=== PATIENT | female | born 1960 | race American Indian/Alaskan Native ===

== ENCOUNTER 2017-06-18 19:37 | Emergency (ER) | payer OTHER ==
[~2017-06-18] VITALS: Ht 154.9 cm; Wt 68.2 kg
[~2017-06-18 19:37] MED LIST: AMOXICILLIN500 MG PO; BENADRYL A12.5 MG/5 PO; CLINDAMYCIN HC300 MG PO; CYCLOBENZAPRINE10 MG PO; DIFLUCAN150 MG PO; HUMALOG KW200 UNIT/1 SQ; HYDROCODON-ACE1 EAC8 PO; JANUMET 50-1,01 EACH PO; JANUVIA100 MG PO; KEFLEX500 MG PO; LANTUS100 UNIT/1 SUB-Q; LANTUS100 UNITS/ SUB-Q; LISINOPRIL10 MG PO; LISINOPRIL40 MG PO; METFORMIN HCL500 MG PO; METHOCARBAMOL500 MG PO; NEURONTIN300 MG PO; NORCO 5-325 TA1 EACH PO; OXYCODONE HCL5 MG PO; PERCOCET 5-3251 EACH PO; REGLAN10 MG PO; TRAMADOL HCL50 MG PO; ZANAFLEX4 MG PO
[2017-08-10] MEDS ORDERED: ZOFRAN ODT4 MG PO (02:21)
== END 2017-06-18 22:19 | disposition home or self-care (01) ==
LOC: ED 19:37
DX: K74.60 Unspecified cirrhosis of liver (principal); E11.9 Type 2 diabetes mellitus without complications; F17.200 Nicotine dependence, unspecified, uncomplicated; Z88.6 Allergy status to analgesic agent; Z86.19 Personal history of other infectious and parasitic diseases; Z79.899 Other long term (current) drug therapy; Z79.4 Long term (current) use of insulin
CPT/HCPCS: 80053; 81001; 82010; 82800; 83690; 85025; 85610; 85730; 96374; 99283; J7030

== ENCOUNTER → 2017-08-10 | Emergency (ER) | payer OTHER ==
[~2017-08-10] VITALS: Ht 154.9 cm; Wt 68.2 kg
[~2017-08-10] MED LIST changes: +ZOFRAN ODT4 MG PO
== END ==
LOC: ED 00:12
DX: R10.9 Unspecified abdominal pain (principal); G89.29 Other chronic pain; K74.60 Unspecified cirrhosis of liver; E11.65 Type 2 diabetes mellitus with hyperglycemia; F17.210 Nicotine dependence, cigarettes, uncomplicated; Z88.6 Allergy status to analgesic agent; Z79.4 Long term (current) use of insulin; Z79.899 Other long term (current) drug therapy
CPT/HCPCS: 80053; 81001; 82010; 82800; 83690; 85025; 96374; 96375; 99284; G0480; J2405; J7030

== ENCOUNTER 2018-05-09 12:31 | Inpatient (IN) | payer OTHER ==
[~2018-05-09] VITALS: Ht 154.9 cm; Wt 61.7 kg
--- OUTSIDE RECORDS SUMMARY | 2018-05-09 12:34 | XMS ---
PreManage Notification: BRAEDEN CIFUENTES [employer] No recent Security Events currently on file CRITERIA MET - [facility] CARE PROVIDERS There are no care providers on record at this time. Ama has no Care Guidelines for this patient. Mariya VISIT COUNT (12 MO.) [address] [place] [id number] NILSA Lowry TOTAL 6 NOTE: Visits indicate total known visits. ED/C VISIT TRACKING (12 MO.) 05/09/2018 12:32 [facility] [place] TYPE: Emergency COMPLAINT: - ALT LOC 11/01/2017 14:29 [facility] [place] TYPE: Emergency COMPLAINT: - LEFT SIDE UQP 08/10/2017 00:13 [facility] [place] TYPE: Emergency COMPLAINT: - FLANK PAIN DIAGNOSES: - Type 2 diabetes mellitus with hyperglycemia - Other chronic pain - Allergy status to analgesic agent status - Other fci (current) drug therapy - Unspecified abdominal pain - Nicotine dependence, cigarettes, uncomplicated - Unspecified cirrhosis of liver - prison (current) use of insulin 06/18/2017 19:37 [facility] [place] TYPE: Emergency COMPLAINT: - ABD PAIN DIAGNOSES: - Type 2 diabetes mellitus without complications - Personal history of other infectious and parasitic diseases - prison (current) use of insulin - Upper abdominal pain, unspecified - Nicotine dependence, unspecified, uncomplicated - Unspecified cirrhosis of liver - Other fci (current) drug therapy - Allergy status to analgesic agent status 06/05/2017 21:33 [facility] TYPE: Emergency DIAGNOSES: - Hematemesis - Hematemesis - Type 1 diabetes mellitus with ketoacidosis without coma - Adverse effect of other nonsteroidal anti-inflammatory drugs [NSAID], initial encounter - Unspecified cirrhosis of liver - Acute posthemorrhagic anemia - Generalized abdominal pain - Other gastritis without bleeding 06/05/2017 19:27 NILSA [facility] TYPE: Emergency COMPLAINT: - VOMITING BLOOD DIAGNOSES: - Nicotine dependence, unspecified, uncomplicated - Gastrointestinal hemorrhage, unspecified - Personal history of other infectious and parasitic diseases - Other terminal worker (current) drug therapy - Type 2 diabetes mellitus without complications - Allergy status to analgesic agent status - Unspecified cirrhosis of liver - continuous churn buttermaker (current) use of insulin - Dorsalgia, unspecified INPATIENT VISIT TRACKING (12 MO.) 06/05/2017 21:33 [facility] TYPE: General Medicine DIAGNOSES: - Acute posthemorrhagic anemia - Generalized abdominal pain - Unspecified cirrhosis of liver - Other gastritis without bleeding - Hematemesis - Type 1 diabetes mellitus with ketoacidosis without coma - Adverse effect of other nonsteroidal anti-inflammatory drugs [NSAID], initial encounter - Other disorders of electrolyte and fluid balance, not elsewhere classified [email or web address]
[2018-05-09] MEDS ORDERED: VITAMIN D35000 UNIT PO (12:51)
[2018-05-09] MEDS ORDERED: PROPRANOLOL HCL20 MG PO (12:52)
[2018-05-09] MEDS ORDERED: ALDACTONE25 MG PO (12:53)
[2018-05-09] MEDS ORDERED: ONGLYZA5 MG PO (12:53)
[2018-05-09] MEDS ORDERED: LISINOPRIL5 MG PO (12:54)
--- NOTE | 2018-05-09 15:49 | NUR ---
PT HERE FROM ER AT 1520. PT ABLE TO TRANSFER FROM STRETCHER TO BED WITH TWO PERSON STANDBY ASSIST. PT DENEIS SOB, AND NAUSEA, PT C/O PAIN CANNOT RATE. PT REPORTS "I RAN OUT OF MY PAIN PILLS, I'M ON A PAIN CONTRACT". PT REPORTS PAIN IS "ALL OVER". IV SITE INTACT, NO REDNES OR SWELLING NOTED, FLUIDS INFUSE EASILY.
--- NOTE | 2018-05-09 18:05 | NUR ---
PT REPORTS "I'M FINALLY WARM", ORAL TEMP IS 98.8
--- NOTE | 2018-05-09 18:23 | NUR ---
PT UP SITTING ON THE BEDSIDE COMMODE ATTEMPTING TO URINATE. PT ALSO USING BATH CLOTHS TO WIPE DOWN HER BODY, A PARTIAL BEDBATH. PT DENIES NEED FOR HELP WITH THIS, SUPPLIES WITHIN PT REACH. PT GIVEN CALL LIGHT AND INSTRUCTED TO CALL BEFORE GETTING UP. PT NOT SAFE TO TRANSFER SELF FROM COMMODE TO BED.
--- NOTE | 2018-05-09 19:38 | NUR ---
PT STILL NOT ABLE TO VOID. BLADDER SCANNED PT FOR 158 ML URINE. CALLED TO UPDATE ON PT STATUS. NO FURTHER ORDERS GIVEN EXCEPT TO CONTINUE TO MONITOR.
--- NOTE | 2018-05-09 19:45 | NUR ---
PT SHIFT REPORT RECEIVED FROM DAY SHIFT RN. PT IS RESTING IN BED AT THIS TIME. PT CALLS APPROPRIATELY. WILL CONTINUE TO CLOSELY MONITOR.
--- NOTE | 2018-05-09 21:00 | NUR ---
PT SHIFT ASSESSMENT COMPLETED. PT RESTING IN BED. PT STATES SHE HAS 7/10 CHRONIC PAIN. BREATH SOUNDS CLEAR. BOWEL TONES ACTIVE. PT HAS GENERALIZED WEAKNESS. VITALS VAIBHAV. WILL CONTINUE TO CLOSELY MONITOR.
--- NOTE | 2018-05-09 23:00 | NUR ---
UPDATED MD NÚÑEZ ABOUT PT STATING SHE IS ON A PAIN CONTRACT AND NORMALLY TAKES OXYCODONE 5MG. PER MD WILL GIVE ONE TIME DOSE TONIGHT AND GET MEDICATION REC TOMORROW FOR VERIFICATION. WILL CONTINUE TO CLOSELY MONITOR.
--- NOTE | 2018-05-10 01:00 | NUR ---
PT RESTING IN BED AT THIS TIME. PT DENIES NEEDING TO URINATE YET, BUT WILL TRY AGAIN LATER. pT HAS BEEN UP TO THE CAMMODE ONCE THIS SHIFT TO TRY AND URINATE WITH NO RESULTS. MD IS AWARE. WILL CONTINUE TO ENCOURAGE ORAL INTAKE.
--- NOTE | 2018-05-10 02:54 | NUR ---
PT UP TO THE CAMMODE WITH NO RESULTS. NEW FRESH WATER PLACED AT THE BEDSIDE AND ENCOURAGED PT TO DRINK FLUID. WILL RECHECK BLADDER SCAN IF PT IS NOT ABLE TO VOID NEXT TIME.
--- NOTE | 2018-05-10 04:38 | NUR ---
PT PAIN MUCH MORE CONTROLLED PER PATIENT WITH GETTING PRN PAIN MEDICATION. PT DENIES ANY NEEDS AT THIS TIME. WILL CONTINUE TO CLOSELY MONITOR.
--- NOTE | 2018-05-10 06:54 | NUR ---
CALLED MD TO UPDATE THAT PATIENT HAS NOT URINATED. BLADDER SCANNED FOR 390MLS. PER MD WILL CONTINUE TO MONITOR URINE OUTPUT. NO INVERVENTIONS AT THIS TIME.
--- NOTE | 2018-05-10 07:16 | EKG ---
[facility] [address] [place] [address] Signed Sinus bradycardia Septal infarct (cited on or before 05-JUN-2017) Abnormal ECG When compared with ECG of 05-JUN-2017 20:11, Vent. rate has decreased BY 53 BPM Questionable change in QRS axis Confirmed by LEILANI NÚÑEZ MD ([id number]) on 05/10/2018 7:15:57 AM Electronically Signed By: LEILANI NÚÑEZ MD 05/10/18 0716 PATIENT NAME: BRAEDEN CIFUENTES KYMBERLY Electrocardiogram DATE OF : 64 PHYSICIAN: LEILANI NÚÑEZ MD REPORT #: [id number] REPORT IS CONFIDENTIAL AND NOT TO BE RELEASED WITHOUT AUTHORIZATION
--- NOTE | 2018-05-10 10:30 | NUR ---
CALL LIGHT ANSWERED. PT WORKING WITH P/T WHEN IV ACCESS WAS PULLED OUT. SITE ASSESSED AND COVERED. PT CLEANED UP, LINEN, CHANGED, NEW ACCESS TO BE PLACED. PT UP IN CHAIR. CALL LIGHT WITHIN REACH.
--- NOTE | 2018-05-10 11:40 | NUR ---
PHONE CALL TO [facility] TO REQUEST RECORDS, SARANYA TO FAX.
--- NOTE | 2018-05-10 12:00 | NUR ---
NO ACUTE CHANGES TO ASSESSMENT. EDUCATION PROVIDED ON MRI AND MRI SHEET FILLED OUT, ALL QUESTIONS ANSWERED, PT VERBALIZED UNDERSTANDING. CBG 173, INSULIN TO BE GIVEN ONCE PT RETURNS AND LUNCH IS AVAILABLE.
--- NOTE | 2018-05-10 13:00 | NUR ---
PT OFF UNIT FOR MRI.
--- NOTE | 2018-05-10 14:00 | NUR ---
PT RETURNED FROM MRI AND SITTING UP IN CHAIR. DR. NÚÑEZ IN ROOM TO DISCUSS FINDINGS.
--- NOTE | 2018-05-10 15:28 | NUR ---
IMAGING IN ROOM TO PEFORM ULTRASOUND. PT ASSISTED TO BED AND ONTO SIDE. PT WEAK WITH TRANSFER. CALL LIGHT WITHIN REACH.
--- NOTE | 2018-05-10 16:00 | NUR ---
IMAGING IN ROOM WITH PT.
--- NOTE | 2018-05-10 17:00 | NUR ---
CBG 213, UNITS GIVEN. DISCUSSED IN LENGTH THE USE OF PLAVIX, SIDE EFFECTS, AND RISKS, ALL QUESTIONS ANSWERED, PT VERBALIZED UNDERSTANDING AND AGREEABLE TO MEDICATION.
--- NOTE | 2018-05-10 17:41 | NUR ---
PHONE CALL TO PROVIDER REGARDING CHRONIC PAIN MEDICATION. RECORDS RC'D FROM PAIN CLINIC STATING GABAPENTIN 300MG TID AND OXYCODONE 5MG BID. PER DR. NÚÑEZ, ORDER FOR GABAPENTIN 300MG TID AND OXYCONE 5MG BID, ODER READ BACK AND VERIFIED.
--- NOTE | 2018-05-10 18:00 | NUR ---
FAMILY AT BEDSIDE TO VISIT WITH PT. DISCUSSED RESTARTING CHRONIC PAIN MEDICATIONS, PT VERBALIZED UNDERSTANDING. DENIES OTHER NEEDS. CALL LIGHT WITHIN REACH .
--- NOTE | 2018-05-10 18:47 | NUR ---
Medications reconciled with patient interview
--- NOTE | 2018-05-10 19:00 | NUR ---
PT RESTING IN BED WATCHING TV AT THIS TIME.
--- NOTE | 2018-05-10 20:45 | NUR ---
PT CALLED, NEEDING TO GO TO BR. ABLE TO USE WALKER WITH STANDBY ASSIST TO BSC. VOIDED DARK KAILEE URINE. CONT TO ENCOURAGE TO DRINK MORE. HS CARE DONE. PT IS ENCOURAGED THAT SHE IS ABLE TO DO MORE NOW, AND GETTING STRONGER. PT REQUESTING HS PAIN MEDS, GIVEN.
--- NOTE | 2018-05-10 21:12 | NUR ---
BS 247, GIVEN 5U INSULIN SQ.
--- NOTE | 2018-05-10 22:30 | NUR ---
PT DOZING OFF AND ON. UNABLE TO FLUSH SL R HAND, RESTARTED L WRIST. ABX INFUSING. PT HAS NO C/O.
--- NOTE | 2018-05-11 00:29 | NUR ---
AWAKENS EASILY, NO C/O.
--- NOTE | 2018-05-11 02:30 | NUR ---
SLEEPING. HR 70'S.
--- NOTE | 2018-05-11 04:22 | NUR ---
CONT TO SLEEP.
--- NOTE | 2018-05-11 04:51 | NUR ---
AWAKENS EASILY. STATES FEELS LIKE HER R SIDED WEAKNESS IS IMPROVING AND R PROCESS DEVELOPMENT ENGINEER IS STRONGER THAN EARLIER. PEDEL PUSHES ARE ESS EQUAL. IN GOOD SPIRITS.
--- NOTE | 2018-05-11 06:43 | NUR ---
UP TO BSC WITH WALKER. R LEG HAS POOR COORDINATION. GIVEN CALL LIGHT.
--- NOTE | 2018-05-11 06:53 | NUR ---
BACK TO BED, NO VOID OR BM. KADI BEING UP WELL.
--- NOTE | 2018-05-11 08:25 | NUR ---
PT ASSISTED TO HER CHAIR/ RECLINER AT THIS TIME. ASSESSMENT COMPLETED. PT IS VERY PLEASANT, CALM AND COOPERATIVE WITH A GENERALIZED, CHRONIC PAIN SCORE OF 6 OUT OF 10- SCHEDULED OXY AND GABAPENTIN GIVEN. PT DENIES N/V AND SOB. ROOM AIR. CLEAR LUNGS. ACTIVE BOWEL SOUNDS. PT HAS SLIGHT RIGHT SIDED WEAKNESS. SLIGHT ASSIST BY THIS RN/ STAND BY ASSIST PT TRANSFERED. WALKER USED. ENCOURAGED PO INTAKE OF LIQUIDS. EDUCATION COMPLETED. CALL LIGHT WITHIN REACH. FALL PRECAUTIONS IN PLACE. WILL CONTINUE TO MONITOR.
--- NOTE | 2018-05-11 09:45 | NUR ---
PT HAS EATEN ALL HER BREAKFAST. REQUESTING ASSIST TO COMMODE AT THIS TIME. PT STATES THAT HER PAIN IS TOLERABLE. DENIES ANY FURTHER NEEDS. CALL LIGHT WITHIN REACH. WILL CONTINUE TO MONITOR AND RETURN TO ASSIST OFF COMMODE.
--- NOTE | 2018-05-11 10:30 | NUR ---
PT HAS URINATED 500 ML THIS PAST HOUR. SHE DENIES ANY OTHER NEEDS. CALL LIGHT WITHIN REACH. WILL CONTINUE TO MONITOR.
--- NOTE | 2018-05-11 11:20 | NUR ---
PT UP IN THE RECLINER WITH HER EYES SHUT, NAPPING. SHE APPEARS COMFORTABLE WITH NO S/S OF PAIN OR DISCOMFORT. HER CALL LIGHT IS WITHIN REACH AND SHE CALLS APPROPRIATELY. WILL CONTINUE TO MONITOR.
--- NOTE | 2018-05-11 12:50 | NUR ---
NOTIFIED DR. NÚÑEZ AT THIS TIME OF PT'S INCREASED BLOOD GLUCOSE THIS AM AND THIS AFTERNOON. RECOMMENDED POSSIBLY RESTARTING HER LANTUS. ASSESSMENT COMPLETED AT THIS TIME WELL. PT REMAINS PLEASANT AND CALM. SHE WORKED WITH OT THIS MORNING AND PER OT, SHE DID QUITE WELL WITH THIS. NO CHANGES TO PT'S ASSESSMENT AT THIS TIME FROM HER MORNING ASSESSMENT. HER PAIN IS UNDER CONTROL WITH PAIN REGIMEN. DENIES ANY FURTHER NEEDS AT THIS TIME. SHE REMAINS UP IN THE RECLINER ABOUT TO EAT HER LUNCH. CALL LIGHT WITHIN REACH. WILL CONTINUE TO MONITOR.
--- NOTE | 2018-05-11 15:06 | NUR ---
PT RESTING IN BED WATCHING TV AT THIS TIME WITH NO QUESTIONS OR CONCERNS. PT UPDATED ON PLAN OF CARE AND IS AWARE SHE WILL BE TRANSFERING TO M/S UNIT SHORTLY. ABX HUNG AND GABAPENTIN GIVEN. CALL LIGHT WITHIN REACH. WILL CONTINUE TO MONITOR.
--- NOTE | 2018-05-11 15:39 | NUR ---
REPORT GIVEN TO RECEIVING ASIA JOYA. PT SENT IN HER RECLINER BY ASIA SULLIVAN WITH ALL BELONGINGS AND CLINDAMYCIN RUNNING TO M/S UNIT ROOM 121. TRANSFER COMPLETE.
--- NOTE | 2018-05-11 16:00 | NUR ---
patient arrived to the medical floor via chair, she is alert and oriented and on ra currently. patient denies any pain or needs and iv is saline locked after infusing iv abx. call light placed within reach and patient oriented to her room.
--- NOTE | 2018-05-11 17:24 | NUR ---
PATIENT GLUCOSE CHECK 236 AT THIS TIME, PATIENT GIVEN 5 UNITS OF INSULIN SQ, DINNER ORDERED AND ON ITS WAY UP TO HER.
--- NOTE | 2018-05-11 18:30 | NUR ---
THIS PATIENT TRANSFERRED TO ROOM 121 FROM CCU TODAY. SHE HAS BEEN ALERT AND ORIENTED AND A STANDBY ASSIST WITH VERY MILD RIGHT SIDED WEAKNESS AND NUMBNESS. SHE CONTINUES TO HAVE BLOOD SUGAR COVERAGE BY HUMALOG INSULIN ONLY AND LANTUS HAS BEEN HELD DUE TO LOW BLOOD SUGARS UPON ADMIT.
--- NOTE | 2018-05-11 19:15 | NUR ---
RECEIVED REPORT FROM DAY SHIFT RN. PATIENT IS RESTING IN RECLINER EATING DINNER. PATIENT DENIES ANY NEEDS AT THIS TIME. CALL LIGHT IN REACH.
--- NOTE | 2018-05-11 19:30 | NUR ---
CHARGE ROUNDING DONE WITH DAY SHIFT CHARGE AND FLY RN. PATIENT RESTING IN BED. DENIES ANY NEEDS AT THIS TIME. CALL LIGHT IN REACH.
--- NOTE | 2018-05-11 22:15 | NUR ---
PATIENT ASSESEMENT COMPLETED. PATIENT IS RESTING IN BED WATCHING TV. PATIENTS EVENING MEDICATIONS GIVEN PER ORDER. PATIENT RATES PAIN AT A 7/10. PATIENT STATED "I HAVE PAIN ALL OVER, ALL THE TIME". PATIENT HAS CHRONIC PAIN. PATIENT GIVEN SCHEDULED PAIN MEDICATION PER ORDER. PATIENTS SCHEDULED ABX INFUSING. PATIENT DENIES ANY NEEDS AT THIS TIME. CALL LIGHT IN REACH. BED ALARM ON FOR SAFETY. PATIENT IS ALERT AND OREINTED TO ALL BUT DATE.
--- NOTE | 2018-05-11 22:45 | NUR ---
PATIENTS IV ABX IS COMPLETED INFUSING. PATIENT IS NOW SL PER ORDER. PATIENT DENIES ANY NEEDS AT THIS TIME. CALL LIGHT IN REACH AND BED ALARM ON FOR SAFETY.
--- NOTE | 2018-05-12 00:39 | NUR ---
PATIENT IS RESTING IN BED WITH EYES CLSOED, RR 16. CALL LIGHT IN REACH.
--- NOTE | 2018-05-12 01:58 | NUR ---
VITALS TAKEN AND RECORDED. PATIENT ASSISTED TO THE RESTROOM A SBA. PATIENT WAS ABLE TO VOID. PATIENT IS NOW BACK IN BED RESTING. PATIENT DENIES ANY NEEDS. CALL LIGHT IN REACH. ALARM ON FOR SAFETY.
--- NOTE | 2018-05-12 03:10 | NUR ---
ASSESMENT COMPLETED. PATIENT IS RESTING IN BED. PATIENT DENIES ANY NEEDS AT THIS TIME. CALL LIGHT IN REACH. ALARM ON FOR SAFETY.
--- NOTE | 2018-05-12 04:53 | NUR ---
PATIENT RESTED WELL THROUGHOUT THE SHIFT. PATIENT IS ON AN ADA DIET, TOLERATING IT WELL. NO NAUSEA NOTED. PATIENT IS A SBA W/FWWW. PATIENTS OUPUT IS QS. PATIENT IS SL AND IV FLUSHES WELL. PATIENT IS WORKING WITH ST/OT/PT. PATIENT HAS CHRONIC PAIN AND RECEIVED SCHEDULED PAIN MEDICATION PER ORDER. PATIENT IS OREINTED TO ALL BUT DATE AND TIME.
--- NOTE | 2018-05-12 05:53 | NUR ---
PATIENTS VITALS TAKEN AND RECORDED. PATIENTS INTAKE AND OUPUT RECORDED. PATIENT DENIES ANY NEEDS AT THIS TIME. CALL LIGHT IN REACH. BED ALARM ON FOR SAFETY.
--- NOTE | 2018-05-12 06:04 | NUR ---
PATIENT ASSISTED TO THE RESTROOM A SBA W/FWW. PATIENT DOES WELL WITH AMBULATION. PATIENT WAS ABLE TO VOID. PATIENT IS BACK IN BED RESTING. PATIENTS ABX IS COMPLETED. PATIENT IS NOW SL PER ORDER. PATIENT DENIES ANY NEEDS. CALL LIGHT IN REACH.
--- NOTE | 2018-05-12 08:02 | NUR ---
REPORT RECEIVED FROM LEANN BETANCOURT, PATIENT IS SITTING UP IN BED ALERT AND ORIENTED, C/O THE NEED TO HAVE A BM AND STATES THAT HER IBS IS ACTING UP BUT REFUSED WANTING A STOOL SOFTNER AT THIS TIME. VITALS TAKEN AND AM MEDICATION GIVEN. BLOOD SUGAR 347, 9 UNITS OF INSULIN GIVEN SQ.
--- NOTE | 2018-05-12 08:09 | NUR ---
PATIENT IN BED. PATIENT'S BREAKFAST ORDERED
--- NOTE | 2018-05-12 09:22 | NUR ---
PATIENT IN BED. PATIENT WALKS TO BATHROOM USING A WALKER TO TAKE A SHOWER. PATIENT TAKES A SHOWER. LINENS CHANGED. PATIENT BACKS TO CHAIR. WARM BLANKET PROVIDED. CALL LIGHT WITHIN REACH. VITAL SIGNS AND I&O DONE. NO OTHER NEEDS AT THIS TIME
--- NOTE | 2018-05-12 09:35 | NUR ---
TALKED WITH THE PT ABOUT THE POSS OF GOING TO AN [facility]PT [facility] FACILITY, EXPLANED SOME OF THE BENEFITS THAT ARE POSS. SHE STATED SHE WOULD NEED TO TALK WITH HER DAUGHTER AND GET BACK TO ME.
--- NOTE | 2018-05-12 11:50 | NUR ---
patient's blood glucose was 245, 5 units of insulin given sq
--- NOTE | 2018-05-12 13:19 | NUR ---
PATIENT SITTING UP IN CHAIR. VITAL SIGNS AND I&O DONE. CALL LIGHT WITHIN REACH. NO OTHER NEEDS AT THIS TIME
--- NOTE | 2018-05-12 13:30 | NUR ---
PT STATES SHE HASN'T TALKED TO HER DAUGHTER BUT SHE WOULD LIKE US TO SEE IF WE COULD GET HER TO BE ABLE TO GO THERE SHE STATES "I WANT TO BE CLOSE TO 100% I CAN."
--- NOTE | 2018-05-12 15:02 | NUR ---
PATIENT STATES THAT HER FOOT PAIN IS CURRENTLY AT A 6, 650MG OF TYLENOL GIVEN PO. PATIENT ALSO GIVEN SCHEDULED NEURONTIN PO
--- NOTE | 2018-05-12 15:10 | NUR ---
PT STATED TO ME THAT SHE WOULD NEED TRANSPORTATION AND THAT SHE CAN USE THE MEDICAL TRANSPORT THEY JUST NEED 24 HOUR NOTICE FOR THIS. TOLD HER SOON WE HAD AN AUTH ON HER INSURANCE WE COULD CALL FOR THAT RIDE TO THE 1 529 NUMBER.
--- NOTE | 2018-05-12 17:00 | NUR ---
FAXED CLINICAL NOTES TO [facility] IN [place] AFTER SPEAKING WITH MARIJA FROM THERE TO BE SURE THEY ACCEPT THE TYPE OF INSURANCE SHE HAS BEFORE SENTING CHART NOTES. SHE STATES THE DID ACCEPT THAT INSURANCE. SO FAXED FACE SHEET, ER NOTES AND SUMMARY, H AND P, PROG NOTES, PT, OT, AND ST EVALS AND NOTES TO THEM.
--- NOTE | 2018-05-12 17:36 | NUR ---
PATIENT IN BED WATCHING TV. VITAL SIGNS AND I&O DONE. CALL LIGHT WITHIN REACH. NO OTHER NEEDS AT THIS TIME
--- NOTE | 2018-05-12 17:54 | NUR ---
PATIENT HAS HAD MINIMAL PAIN TODAY AND RECEIVED A DOSE OF TYLENOL THIS AFTERNOON FOR C/O FOOT PAIN. SHE HAS REMAINED ALERT AND ORIENTED AND STEADY ON HER FEET. HER NEUOLOGCAL STATUS REMAINS INTACT. SHE WILL D/C TO A FACILITY IN [facility].
--- NOTE | 2018-05-12 19:20 | NUR ---
SHIFT REPORT RECEIVED. PATIENT UP TO BATHROOM WITH CORPORATE ADMINISTRATIVE ASSISTANT ASSIST.
--- NOTE | 2018-05-12 19:30 | NUR ---
CHARGE NURSE REPORT RECEIVED FROM TIM BURNETT WITH NO NEEDS AT THIS TIME, IN BED WATCHING TV.
--- NOTE | 2018-05-12 21:00 | NUR ---
HELPED PT TO THE BATHROOM AND BACK TO BED WITH HER FWW. BEDSIDE TABLE AND CALL LIGHT IN REACH. PT NEEDS NOTHING MORE AT THIS TIME.
--- NOTE | 2018-05-12 21:45 | NUR ---
EVENING MEDS GIVEN. PATIENT'S BLOOD GLUCOSE ELEVATED, PATIENT REPORTS ONLY HAVING SUGAR FREE DRINKS AND FOOD FOR DINNER. DISCUSSED HEALTHY FOOD OPTIONS. INSULIN PROVIDED PER ORDER. PATIENT REPORTS 8/10 GENERALIZED CHRONIC PAIN, SHCEDULED GABAPENTIN AND OXY PROVIDED. PATIENT DENIES NAUSEA. LUNGS ARE CLEAR. REPORTED RIGHT SIDED WEAKNESS, NOT OBVIOUS DURING ASSESSMENT. PATIENT ORIENTED X4.
--- NOTE | 2018-05-12 23:15 | NUR ---
PATIENT APPEARS TO BE SLEEPING SOUNDLY. RR 19. CALL LIGHT IN REACH.
--- NOTE | 2018-05-13 02:00 | NUR ---
PATIENT APPEARS TO BE SLEEPING, WOKE EASILY TO SOUND. DENIES NEEDS AT THIS TIME. CALL LIGHT IN REACH.
--- NOTE | 2018-05-13 04:32 | NUR ---
ASSISTED PATIENT UP TO THE BATHROOM. FRESH LINENS PROVIDED. PATIENT REPORTS PAIN FROM ARTHRITIS AND FM, PRN TYLENOL PROVIDED. PATIENT RETURNED TO BED. DENIES FURTHER NEEDS.
--- NOTE | 2018-05-13 06:44 | NUR ---
PATIENT SLEPT WELL. ORIENTED X4. SBA W/FWW. CALLS APPROPRIATELY. IV SL. ADA DIET. ACCUS CHECKS PER ORDER. URINE OUTPUT QS. PATIENT HAS CHRONIC PAIN, SCHEDULED MEDS WITH PRN TYLENOL.
--- NOTE | 2018-05-13 07:05 | NUR ---
NOTED NO FAX CONFIRMATION ON CHART NOTES FAXED TO [facility], SO REFAXED THEM AND DID RECIEVE A FAX CONFIRMATION THIS AM.
--- NOTE | 2018-05-13 10:41 | NUR ---
PATIENT UP AMBULATING WITH PHYSICAL THERAPY IN THE HALLWAY.
--- NOTE | 2018-05-13 11:54 | NUR ---
PATIENT'S BLOOD GLUCOSE 301, 7 UNITS OF INSULIN GIVEN SQ PATIENT'S LUNCH GIVEN TO HER AND SHE REMAINS ON THE PHONE WITH HER DAUGHTER.
--- NOTE | 2018-05-13 12:50 | NUR ---
I ASKED PATIENT IF SHE WOULD LIKE TO TAKE A SHOWER TODAY AND SHE SAID AROUND 3PM TODAY. SO I SET HER UP FOR HER SHOWER. CHANGED BED LINENS. PATIENT WAS EATING HER LUNCH IN BED.
--- NOTE | 2018-05-13 14:10 | NUR ---
TALKED WITH CHAD AT [facility] AND SHE IS REQUESTING MORE CLINICALS, SENT UPDATED PROG NOTE AND UPDATED PT,OT, AND ST NOTES. RECIEVED A FAX CONFIRMATION.
--- NOTE | 2018-05-13 16:18 | NUR ---
JUST RECIEVED A PHONE CALL FROM [facility] AND THEY WILL NOT BE TAKING PT SHE IS TOO INDEPENDENT. DR ZAMARRIPA INFORMED.
--- NOTE | 2018-05-13 16:50 | NUR ---
PATIENT SITTING UP IN BED, TRAY SET UP FOR HER. GLUCOSE CHECK 313 CURRENTLY, PATIENT GIVEN 7 UNITS OF INSULIN SQ
--- NOTE | 2018-05-13 20:15 | NUR ---
PATIENT AWAKE WATCHING TV IN BED.
--- NOTE | 2018-05-13 20:30 | NUR ---
VITALS AND I&OS DONE AND CHARTED. BLOOD SUGAR DONE AND CHARTED WELL. BEDSIDE TABLE AND CALL LIGHT IN REACH. INFORMED RN BRAEDEN OF BLOOD SUGAR RESULTS.
--- NOTE | 2018-05-13 21:05 | NUR ---
VITALS AND I&OS DONE AND CHARTED. HELPED PT'S ELECTRONIC PUBLICATIONS SPECIALIST GET HER OFF THE BSC AND BACK TO BED. BEDSIDE TABLE AND CALL LIGHT IN REACH. LET ASIA SOTO KNOW OF B\P
--- NOTE | 2018-05-13 22:24 | NUR ---
PATIENT 1PSBA TO THE BATHROOM WITH FWW.
--- NOTE | 2018-05-14 00:10 | NUR ---
PATIENT UP TO THE BATHROOM HAVING LOOSE STOOLS. 1PSBA AND USE OF FWW USED AND THEN PATIENT PLACED BACK IN BED.
--- NOTE | 2018-05-14 01:19 | NUR ---
PATIENT UP TO THE BATHROOM AGAIN WITH LOOSE STOOL. PATIENT SAYS SHE GOES THROUGH EPISODES OF THIS AT HOME AND IT IS NOTHING NEW TO HER. I ASKED HER WHAT SHE USUALLY TAKES FOR IT AND SHE INFORMED ME,"NATURAL REMEDIES LIKE CHAMOMILE TEA." SO, I MADE THE PATIENT SOME TEA AND SHE IS GOING TO TRY THAT.
--- NOTE | 2018-05-14 03:39 | NUR ---
PATIENT AWAKE WATCHING TV AT THIS TIME.
--- NOTE | 2018-05-14 06:15 | NUR ---
VITALS AND I&OS DONE AND CHARTED. BEDSIDE TABLE AND CALL LIGHT IN REACH. PT NEEDS NOTHING MORE AT THIS TIME.
--- NOTE | 2018-05-14 06:25 | NUR ---
PATIENT HAS BEEN VERY INDEPENDENT,BUT CALLS APPROPRIATELY WHEN NEEDING TO GET UP TO THE BATHROOM. PATIENT ONLY HAD C/O PAIN AT THE BEGINING OF THE SHIFT WHICH WAS RELIEVED BY THE OXYCODONE. PATIENT HAS HAD MANY LOOSE BOWEL MOVEMENTS THIS SHIFT. PATIENT SAYS THIS HAPPENS TO HER FREQUENTLY AT HOME AT TIMES AND SHE USUALLY DOES NOT TAKE ANYTHING FOR IT EXCEPT SOME CAMOMILE TEA.
--- NOTE | 2018-05-14 07:42 | NUR ---
RECIEVED REPORT FROM BIOLOGY DEPARTMENT CHAIR RN. PT IN BED WITH EYES CLOSED, IV SL. AWAKES TO VERBAL STIMULI. DENIES NEEDS AT THIS TIME. CALL LIGHT IN REACH.
--- NOTE | 2018-05-14 09:30 | NUR ---
PT REPORTS PAIN IS UNCHANGED AND IS RELATED TO INCREASED BOWEL MOVEMENTS. RATES IT 6/10 IN ABDOMEN. SPEACH THERAPY IN TO SEE PT. PT DENIES FURTHER NEEDS. CALL LIGHT IN REACH.
--- NOTE | 2018-05-14 11:30 | NUR ---
PT UP IN CHAIR WATCHING TV. REPORTS PAIN NOT CHANGED. BS CHECKED AND LUNCH AT BEDSIDE. 3 UNITS GIVEN.
--- NOTE | 2018-05-14 11:54 | NUR ---
CHANGED HER BED LINENS. ALSO HELPED HER INTO THE BATHROOM. PATIENT WAS SITTING UP IN HER CHAIR FOR BREAKFAST. DID HER BLOOD SURGAR CHECK BEFORE SHE ATE BREAKFAST.
--- NOTE | 2018-05-14 14:00 | NUR ---
SPOKE WITH PATIENT IN ROOM. PATIENT AWARE SHE IS GOING TO BE DISCHARGED HOME TOMORROW. SHE STATES HER DAUGHTER WILL BE WITH HER. SHE DOES NOT HAVE A WALKER AT HOME TO USE. SHE ALSO ASKS ABOUT A SHOWER CHAIR. DISCUSSED THAT HER INSURANCE WILL COVER A WALKER AND I CAN GET THAT ORDERED AND DELIVERED TODAY IF SHE WANTS. SHE AGREES TO THIS AND TO USE [facility]. DISCUSSED INSURANCE WILL NOT COVER SHOWER CHAIR. DISCUSSED THAT THEY COST APPROX $70 NEW AT [facility] OR SHE CAN SEE IF [facility] HAS ONE TO BORROW. CONTACT INFORMATION GIVEN FOR THEM. DISCUSSED THAT OUTPATIENT THERAPY WILL BE ORDERED, SHE STATES SHE WANTS TO DO [facility] AT [facility]. DISCUSSED THAT I WILL SEND ORDER, AND SHE WILL BE CALLED NEXT WEEK TO SET UP THOSE APPOINTMENTS. SHE STATES UNDERSTANDING. HAS NO QUESTIONS AT THIS TIME.
--- NOTE | 2018-05-14 15:30 | NUR ---
RX FOR WALKER AND CLINICALS FAXED TO [facility]. FAX CONFIRMATION RECEIVED. SPOKE WITH THOMAS IN OFFICE. SHE STATES THEY WILL DELIVER THIS LATER THIS AFTERNOON TO ROOM.
--- NOTE | 2018-05-14 16:21 | NUR ---
PT SBA TO BATHROOM WITH FWW. TOLERATED WELL. ASSESSMENT DONE WITH NO CHANGE. IV STARTED AND MAGNESIUM TO BE STARTED.
--- NOTE | 2018-05-14 18:56 | NUR ---
PT HAD GOOD DAY, STRENGTH EQUAL IN UE AND LE. SCHEDULES OXYCODONE. SBA WITH FWW. ADA. U/O QS. VSS. BLOOD PRESSURE MEDS STARTED.
--- NOTE | 2018-05-14 19:39 | NUR ---
patient needed assistance getting back into bed from the toilet. she asked if she could have some fresh ice water so i grabbed that for her and she didnt need anything else at this time. patient had call light and bed side table within reach.
--- NOTE | 2018-05-14 19:53 | NUR ---
i did patients blood sugar check and informed the RN Rj so he could chart it. patient did not need anything else at this time.
--- NOTE | 2018-05-14 20:58 | NUR ---
PATIENT JUST GETTING BACK FROM THE BATHROOM WITH FWW AND 1PSBA.
--- NOTE | 2018-05-14 22:21 | NUR ---
SAGGER PREPARER ROUNDING NOTE. PT RESTING IN BED. DENIES NEEDS AT THIS TIME. CALL LIGHT WITHIN [facility].
--- NOTE | 2018-05-14 23:12 | NUR ---
PATIENT RESTING QUIETLY ON HER RIGHT SIDE, EYES CLOSED, RESPIRATIONS REGULAR AND EVEN AT 16. CALL LIGHT IN REACH. PATIENT IN NO DISTRESS.
--- NOTE | 2018-05-15 02:14 | NUR ---
PATIENT JUST WOKE UP AND SAID SHE IS DOING FINE AND HAS NO NEEDS AT THIS TIME CALL LIGHT IN REACH.
--- NOTE | 2018-05-15 03:47 | NUR ---
PATIENT BACK RESTING QUIETLY, EYES CLOSED, ON HER LEFT SIDE, RESPIRATIONS REGULAR AND EVEN AT 16. CALL LIGHT IN REACH.
--- NOTE | 2018-05-15 05:07 | NUR ---
PATIENT HAS RESTED WELL THROUGH THE NIGHT IN BETWEEN TRIPS TO THE BATHROOM. PAIN HAS BEENUNDER CONTROL AFTER PM OXYCODONE. IV FLUSHES WELL AND PATIENT HAS HAD A 1PSBA WITH FWW EACH TIME SHE HAS GOTTON UP TO GO TO THE BATHROOM. CALL LIGHT IN REACH.
--- NOTE | 2018-05-15 07:36 | NUR ---
RECEIVED REPORT FROM SUPERVISOR WATERPROOFING RN. PT LYING IN BED WITH EYES CLOSED. RESPIRATIONS EQUAL AND NON-LABORED. CALL LIGHT IN REACH.
--- NOTE | 2018-05-15 07:44 | NUR ---
BLOOD SUGAR AT 70. CRACKERS AND PENUTBUTTER PROVIDED BEFORE BREAKFAST ARRIVES.
--- NOTE | 2018-05-15 08:22 | NUR ---
BLOOD SUGAR RECHECKED AT 82. BREAKFAST AT BEDSIDE. PT ASYPMTOMATIC. WILL RECHECK IN 15 MIN.
[2018-05-15] MEDS ORDERED: LISINOPRIL10 MG PO (09:45)
[2018-05-15] MEDS ORDERED: CLOPIDOGREL75 MG PO (09:45)
[2018-05-15] MEDS ORDERED: GABAPENTIN300 MG PO (09:46)
[2018-05-15] MEDS ORDERED: LANTUS100 UNITS/ SUB-Q (09:47)
--- NOTE | 2018-05-15 11:45 | NUR ---
THIS MORNING SET PATIENT UP TO TAKE A SHOWER. SO PATIENT TOOK A SHOWER AROUND 1030 THIS MORING.
--- NOTE | 2018-05-15 12:00 | NUR ---
PT SHOWERED AND IS WAITING FOR LUNCH. PLAN FOR DISCHARGE AFTER LUNCH.
--- NOTE | 2018-05-17 07:53 | NUR ---
FAXED TO [facility] OUTPATIENT THERAPY DEPT [phone] SENT: ORDER/FACE SHEET/ED REPORT/H&P/PROG NOTES/PT,OT EVALS&NOTES/DISCHARGE SUMMARY. FAX CONFIRMATION RECEIVED 05/17/18 710AM.
== END 2018-05-15 13:20 | disposition home or self-care (01) | DRG 64 ==
LOC: ED 12:31 → CCU 12:33 → MS 05-11 15:40
PROVIDERS: ADMIT Internal Medicine
DX: I63.9 Cerebral infarction, unspecified (principal); J15.4 Pneumonia due to other streptococci; K74.60 Unspecified cirrhosis of liver; B19.20 Unspecified viral hepatitis C without hepatic coma; E11.649 Type 2 diabetes mellitus with hypoglycemia without coma; I10 Essential (primary) hypertension; G89.29 Other chronic pain; F17.200 Nicotine dependence, unspecified, uncomplicated; S00.93XA Contusion of unspecified part of head, initial encounter; T68.XXXA Hypothermia, initial encounter; F19.11 Other psychoactive substance abuse, in remission; X58.XXXA Exposure to other specified factors, initial encounter; Z79.899 Other long term (current) drug therapy; Z79.4 Long term (current) use of insulin; Z88.8 Allergy status to other drugs, medicaments and biological substances
CPT/HCPCS: 36415; 51798; 70450; 70551; 71045; 80048; 80053; 82140; 83605; 83735; 84484; 85025; 85610; 85730; 92507; 92526; 92610; 93005; 93010; 93306; 93880; 96361; 96365; 96366; 96367; 96375; 97110; 97112; 97116; 97163; 97165; 97530; 99285-25; 99406; G0378; G0480; J0696; J1815; J3475; J7040

== ENCOUNTER 2018-06-28 16:29 | Emergency (ER) | payer OTHER ==
[~2018-06-28] VITALS: Ht 154.9 cm; Wt 61.7 kg
--- OUTSIDE RECORDS SUMMARY | ~2018-06-28 | XMS | Encounter Summary ---
Demographics + + + | Address | [address] | | | [place] [address] | + + + | Home Phone | | + + + | Preferred Language | Unknown | + + + | Marital Status | Single | + + + | Voodoo Affiliation | Unknown | + + + | Race | Unknown | + + + | Ethnic Group | Unknown | + + + Author + + + | Author | [facility] | + + + | Organization | [facility] | + + + | Address | Unknown | + + + | Phone | Unavailable | + + + Support + + +---------+ + | Name | Relationship | Address | Phone | + + +---------+ + | Shar Oruorke | ECON | Unknown | | + + +---------+ + Care Team Providers + +------+ + | Care Electrical Maintenance Worker Name | Role | Phone | + +------+ + | Tayler Marimarmelvin Primary | PCP | | + +------+ + Encounter Details +--------+ + + + + | Date | Type | Department | Care Team | Description | +--------+ + + + + | 05/10/ | Ancillary | [facility] | Keke Woods MD | Cerebrovascular | | 2019 | Orders | ECHO | [address] | accident (CVA), | | | | | [place] | unspecified | | | | | [phone] | mechanism (HCC) | | | | | | | +--------+ + + + + Social History + +-------+ +--------+------+ | Tobacco Use | Types | Packs/Day | Years | Date | | | | | Used | | + +-------+ +--------+------+ | Current Every Day | | 0.5 | | | | Smoker | | | | | + +-------+ +--------+------+ + +---+---+---+ | Smokeless Tobacco: | | | | | Never Used | | | | + +---+---+---+ + + +---------+ + | Alcohol Use | Drinks/We | oz/Week | Comments | | | ek | | | + + +---------+ + | Yes | | | occ | + + +---------+ + + + + | Sex Assigned at | Date Recorded | | | | + + + | Not on file | | + + + as of this encounter Plan of Treatment Not on fileas of this encounter Results ECHO outside interpretation standard (05/10/2018 4:13 PM) + + + | Impressions | Performed At | + + + | 1. The left ventricle is normal in size, wall thickness and systolic | [facility] | | function EF 60-65%. 2. The right ventricle is normal in size and | RADIOLOGY | | function. 3. No significant valvular pathology. 4. There is no | | | pericardial effusion. | | + + + + + + | Narrative | Performed At | + + + | Patient Name: Rj Waggoner Date of : 1960 | [facility] | | Performing Physician: Nicho Bloom | RADIOLOGY | | | | | INDICATIONS cva CONCLUSIONS 1. The | | | left ventricle is normal in size, wall thickness and systolic function | | | EF 60-65%. 2. The right ventricle is normal in size and function. | | | 3. No significant valvular pathology. 4. There is no pericardial | | | effusion. FINDINGS -------- ECG rhythm: Sinus rhythm. Study: A | | | 2-dimensional transthoracic echocardiogram with m-mode, spectral and | | | color flow Doppler was perfomed. Study: This was a technically | | | adequate study. Left Ventricle: Overall left ventricular systolic | | | function is normal with, an EF between 60 - 65 %. Left Ventricle: | | | The left ventricle cavity size is normal. Left Ventricle: Left | | | ventricular wall thickness is normal. Left Ventricle: The diastolic | | | filling pattern is normal for the age of the patient. Right | | | Ventricle: The right ventricle is normal in size and function. Left | | | Atrium: The left atrium is normal in size. Right Atrium: The right | | | atrium is normal in size. Aortic Valve: The aortic valve is | | | trileaflet. Aortic Valve: Trace amount of aortic regurgitation. | | | Aortic Valve: There is no evidence of aortic stenosis. Mitral Valve: | | | Normal appearing mitral valve. Mitral Valve: Mild mitral | | | regurgitation is present. Tricuspid Valve: The tricuspid valve | | | appears structurally normal. Tricuspid Valve: Mild tricuspid | | | regurgitation present. Tricuspid Valve: There is no evidence of | | | pulmonary hypertension. Tricuspid Valve: The right ventricular | | | systolic pressure (pulmonary artery systolic pressure), as measured by | | | Doppler, is 26.68mmHg. Pulmonic Valve: Pulmonic valve appears | | | structurally normal. Pulmonic Valve: Trace pulmonic | | | regurgitation. Pulmonic Valve: No significant valvular pathology. | | | Pericardium: There is no pericardial effusion. Pericardium: No | | | pleural effusion seen. IVC/Hepatic Veins: The inferior vena cava is | | | normal in size and collapses > 50 % with sniff, indicating normal | | | central venous pressures. Aorta: The aortic root, ascending aorta and | | | aortic arch are normal. Mass: No mass visualized Thrombus: No clot | | | visualized Thrombus: No vegetation visualized. Septum: No ASD | | | observed. Septum: No VSD observed. MEASUREMENTS | | | Ao asc: 2.38 cm Ao sinus: 2.[address] junct: 2.13 cm | | | IVC: 1.92 cm LA Diam: 4.16 cm EDV(Teich): 67.90 ml | | | IVSd: 0.93 cm LVIDd: 3.94 cm LVPWd: 0.97 cm %FS: | | | 31.13 % EF(Teich): 59.49 % ESV(Teich): 27.50 ml LVIDs: | | | 2.71 cm SV(Teich): 40.39 ml RVIDd: 2.68 cm LVEF MOD | | | A2C: 61.73 % SV MOD A2C: 62.08 ml LVEF MOD A4C: 62.84 % | | | SV MOD A4C: 54.63 ml EF Biplane: 62.71 % LVEDV MOD BP: | | | 96.39 ml LVESV MOD BP: 35.94 ml LVEDV MOD A2C: 100.55 ml | | | LVLd A2C: 7.75 cm LVEDV MOD A4C: 86.93 ml LVLd A4C: 7.24 | | | cm LVESV MOD A2C: 38.47 ml LVLs A2C: 6.04 cm LVESV MOD | | | A4C: 32.30 ml LVLs A4C: 5.75 cm LAESV(A-L): 46.94 ml | | | LAESV Index (A-L): 27.77 ml/m2 LAAs A2C: 13.87 cm2 LAESV A-L | | | A2C: 40.60 ml LALs A2C: 4.02 cm LAAs A4C: 16.03 cm2 | | | LAESV A-L A4C: 47.14 ml LALs A4C: 4.66 cm RAAs: 11.89 | | | cm2 RAESV A-L: 25.80 ml RAESV MOD: 25.17 ml RALs: 4.65 | | | cm TAPSE: 1.85 cm AV maxP.48 mmHg AV meanP.95 | | | mmHg AV Vmax: 1.17 m/s AV Vmean: 0.82 m/s AV VTI: 25.44 | | | cm LVOT maxP.13 mmHg LVOT meanP.22 mmHg LVOT | | | Vmax: 1.01 m/s LVOT Vmean: 0.71 m/s LVOT VTI: 21.34 cm | | | MV A Martín: 0.88 m/s MV Dec Kern: 5.85 m/s2 MV DecT: | | | 179.39 ms MV E Martín: 1.05 m/s MV E/A Ratio: 1.18 MV | | | PHT: 52.02 ms MVA By PHT: 4.22 cm2 Septal e': 0.07 m/s | | | Septal E/e': 14.24 Lateral e': 0.08 m/s Lateral E/e': | | | 11.73 RAP: 5 mmHg RVSP: 26.68 mmHg TR maxP.68 | | | mmHg TR Vmax: 2.32 m/s Embedded Developer: PATRICIA Authenticated by: | | | [facility] Report Date/Time: 05-10-2018 19:7:54 | | + + + + + | Procedure Note | + + | Brian Edgar In - 05/10/2018 7:08 PM PST Patient Name: Douglas Waggoner of | | : 1960ccession: [id number] Physician: Nicho | | Merle INDICATIONS------ | | -----cvaCONCLUSIONS 1. The left ventricle is normal in size, wall thickness | | and systolic function EF 60-65%.2. The right ventricle is normal in size and function.3. | | No significant valvular pathology.4. There is no pericardial | | effusion.FINDINGS--------ECG rhythm: Sinus rhythm.Study: A 2-dimensional transthoracic | | echocardiogram with m-mode, spectral and color flow Doppler was perfomed. Study: This | | was a technically adequate study.Left Ventricle: Overall left ventricular systolic | | function is normal with, an EF between 60 - 65 %. Left Ventricle: The left ventricle | | cavity size is normal. Left Ventricle: Left ventricular wall thickness is normal. Left | | Ventricle: The diastolic filling pattern is normal for the age of the patient.Right | | Ventricle: The right ventricle is normal in size and function.Left Atrium: The left | | atrium is normal in size.Right Atrium: The right atrium is normal in size. Aortic Valve: | | The aortic valve is trileaflet. Aortic Valve: Trace amount of aortic regurgitation. | | Aortic Valve: There is no evidence of aortic stenosis.Mitral Valve: Normal appearing | | mitral valve. Mitral Valve: Mild mitral regurgitation is present.Tricuspid Valve: The | | tricuspid valve appears structurally normal. Tricuspid Valve: Mild tricuspid | | regurgitation present. Tricuspid Valve: There is no evidence of pulmonary hypertension. | | Tricuspid Valve: The right ventricular systolic pressure (pulmonary artery systolic | | pressure), as measured by Doppler, is 26.68mmHg.Pulmonic Valve: Pulmonic valve appears | | structurally normal. Pulmonic Valve: Trace pulmonic regurgitation. Pulmonic Valve: No | | significant valvular pathology.Pericardium: There is no pericardial effusion. | | Pericardium: No pleural effusion seen.IVC/Hepatic Veins: The inferior vena cava is | | normal in size and collapses > 50 % with sniff, indicating normal central venous | | pressures.Aorta: The aortic root, ascending aorta and aortic arch are normal.Mass: No | | mass visualizedThrombus: No clot visualized Thrombus: No vegetation visualized.Septum: | | No ASD observed. Septum: No VSD observed.MEASUREMENTS Ao asc: 2.38 cmAo | | sinus: 2.[address] junct: 2.13 cmIVC: 1.92 cmLA Diam: 4.16 cmEDV(Teich): | | 67.90 mlIVSd: 0.93 cmLVIDd: 3.94 cmLVPWd: 0.97 cm%FS: 31.13 %EF(Teich): 59.49 | | %ESV(Teich): 27.50 mlLVIDs: 2.71 cmSV(Teich): 40.39 mlRVIDd: 2.68 cmLVEF MOD | | A2C: 61.73 %SV MOD A2C: 62.08 mlLVEF MOD A4C: 62.84 %SV MOD A4C: 54.63 mlEF | | Biplane: 62.71 %LVEDV MOD BP: 96.39 mlLVESV MOD BP: 35.94 mlLVEDV MOD A2C: | | 100.55 mlLVLd A2C: 7.75 cmLVEDV MOD A4C: 86.93 mlLVLd A4C: 7.24 cmLVESV MOD A2C: | | 38.47 mlLVLs A2C: 6.04 cmLVESV MOD A4C: 32.30 mlLVLs A4C: 5.75 cmLAESV(A-L): | | 46.94 mlLAESV Index (A-L): 27.77 ml/m2LAAs A2C: 13.87 [id number] A-L A2C: 40.60 | | mlLALs A2C: 4.02 cmLAAs A4C: 16.03 [id number] A-L A4C: 47.14 mlLALs A4C: 4.66 | | cmRAAs: 11.89 [id number] A-L: 25.80 mlRAESV MOD: 25.17 mlRALs: 4.65 cmTAPSE: | | 1.85 cmAV maxP.48 mmHgAV meanP.95 mmHgAV Vmax: 1.17 m/Umesh Vmean: 0.82 | | m/Umesh VTI: 25.44 cmLVOT maxP.13 mmHgLVOT meanP.22 mmHgLVOT Vmax: 1.01 | | m/sLVOT Vmean: 0.71 m/sLVOT VTI: 21.34 cmMV A Martín: 0.88 m/sMV Dec Kern: 5.85 | | m/s2MV DecT: 179.39 msMV E Martín: 1.05 m/sMV E/A Ratio: 1.18 MV PHT: 52.02 msMVA | | By PHT: 4.22 [id number] e': 0.07 m/sSeptal E/e': 14.24 Lateral e': 0.08 | | m/sLateral E/e': 11.73 RAP: 5 mmHgRVSP: 26.68 mmHgTR maxP.68 mmHgTR Vmax: | | 2.32 m/sSonographer: DBSAuthenticated by: Nicho Nuñez Date/Time: 05-10-2018 | | 19:7:54IMPRESSION:1. The left ventricle is normal in size, wall thickness and systolic | | function EF 60-65%.2. The right ventricle is normal in size and function.3. No | | significant valvular pathology.4. There is no pericardial effusion. | |Thrombus: No clot visualized | |Thrombus: No vegetation visualized. | |Septum: No ASD observed. | |Septum: No VSD observed. | | | |MEASUREMENTS | | | |Ao asc: 2.38 cm | |Ao sinus: 2.72 cm | |Ao st junct: 2.13 cm | |IVC: 1.92 cm | |LA Diam: 4.16 cm | |EDV(Teich): 67.90 ml | |IVSd: 0.93 cm | |LVIDd: 3.94 cm | |LVPWd: 0.97 cm | |%FS: 31.13 % | |EF(Teich): 59.49 % | |ESV(Teich): 27.50 ml | |LVIDs: 2.71 cm | |SV(Teich): 40.39 ml | |RVIDd: 2.68 cm | |LVEF MOD A2C: 61.73 % | |SV MOD A2C: 62.08 ml | |LVEF MOD A4C: 62.84 % | |SV MOD A4C: 54.63 ml | |EF Biplane: 62.71 % | |LVEDV MOD BP: 96.39 ml | |LVESV MOD BP: 35.94 ml | |LVEDV MOD A2C: 100.55 ml | |LVLd A2C: 7.75 cm | |LVEDV MOD A4C: 86.93 ml | |LVLd A4C: 7.24 cm | |LVESV MOD A2C: 38.47 ml | |LVLs A2C: 6.04 cm | |LVESV MOD A4C: 32.30 ml | |LVLs A4C: 5.75 cm | |LAESV(A-L): 46.94 ml | |LAESV Index (A-L): 27.77 ml/m2 | |LAAs A2C: 13.87 cm2 | |LAESV A-L A2C: 40.60 ml | |LALs A2C: 4.02 cm | |LAAs A4C: 16.03 cm2 | |LAESV A-L A4C: 47.14 ml | |LALs A4C: 4.66 cm | |RAAs: 11.89 cm2 | |RAESV A-L: 25.80 ml | |RAESV MOD: 25.17 ml | |RALs: 4.65 cm | |TAPSE: 1.85 cm | |AV maxP.48 mmHg | |AV meanP.95 mmHg | |AV Vmax: 1.17 m/s | |AV Vmean: 0.82 m/s | |AV VTI: 25.44 cm | |LVOT maxP.13 mmHg | |LVOT meanP.22 mmHg | |LVOT Vmax: 1.01 m/s | |LVOT Vmean: 0.71 m/s | |LVOT VTI: 21.34 cm | |MV A Martín: 0.88 m/s | |MV Dec Kern: 5.85 m/s2 | |MV DecT: 179.39 ms | |MV E Martín: 1.05 m/s | |MV E/A Ratio: 1.18 | |MV PHT: 52.02 ms | |MVA By PHT: 4.22 cm2 | |Septal e': 0.07 m/s | |Septal E/e': 14.24 | |Lateral e': 0.08 m/s | |Lateral E/e': 11.73 | |RAP: 5 mmHg | |RVSP: 26.68 mmHg | |TR maxP.68 mmHg | |TR Vmax: 2.32 m/s | | | |Embedded Developer: DBS | |Authenticated by: Nicho Bloom | |Report Date/Time: 05-10-2018 19:7:54 | | | |IMPRESSION: | |1. The left ventricle is normal in size, wall thickness and systolic function EF 60-65%. | |2. The right ventricle is normal in size and function. | |3. No significant valvular pathology. | |4. There is no pericardial effusion. | + + + + + + + | Performing | Address | City/State/Zipcode | Phone Number | | Organization | | | | + + + + + | [facility] | [address] | [place] [address] | | + + + + + in this encounter Visit Diagnoses + + | Diagnosis | + + | Cerebrovascular accident (CVA), unspecified mechanism (HCC) | + +"
--- OUTSIDE RECORDS SUMMARY | ~2018-06-28 | XMS | Encounter Summary ---
Demographics + + + | Address | [address] | | | [place] [address] | + + + | Home Phone | | + + + | Preferred Language | Unknown | + + + | Marital Status | | + + + | Holiness Affiliation | Unknown | + + + | Race | Unknown | + + + | Ethnic Group | Unknown | + + + Author + + + | Author | [facility] | | | and [place] | + + + | Organization | [facility] | | | and [place] [...] Team Providers + +------+ + | Care Pipe Installer Name | Role | Phone | + +------+ + | Sneha Deutsch PA-C | PCP | | + +------+ + Reason for Visit +--------+ + | Reason | Comments | +--------+ + | Other | paracentesis | +--------+ + Encounter Details +--------+ + + + + | Date | Type | Department | Care Team | Description | +--------+ + + + + | 06/14/ | Telephone | [facility] | [facility], | Other (paracentesis) | | 2019 | | GASTROENTEROLOGY | [address] | | | | | [address] | [place], [place] [address] | | | | | [address] [place], [place] | [place], [place] | | | | | [address] | [address] | | | | | [phone] | | | +--------+ + + + [...] as of this encounter Plan of Treatment +--------+---------+ + + + | Date | Type | Specialty | Care Team | Description | +--------+---------+ + + + | 07/19/ | Office | Gastroenterology | [facility], | | | 2019 | Visit | | [address] | | | | | | [place] [address] [address] | | | | | | [place] | | | | | | [address] | | | | | | | | +--------+---------+ + + + as of this encounter Visit Diagnoses Not on filein this encounter"
--- OUTSIDE RECORDS SUMMARY | ~2018-06-28 | XMS | Encounter Summary ---
Demographics + + + | Address | [address] | | | [place] [address] | + + + | Home Phone | | + + + | Preferred Language | Unknown | + + + | Marital Status | | + + + | Zoroastrianism Affiliation | Unknown | + + + | Race | Unknown | + + + | Ethnic Group | Unknown | + + + Author + + + | Author | [facility] | | | and [place] | + + + | Organization | [facility] | | | and [...] Team Providers + +------+ + | Care Profiling Machine Setup Operator Name | Role | Phone | + [...] + + | 06/14/ | Telephone | [facility] | [facility], | Other (paracentesis) | | 2019 | | GASTROENTEROLOGY | [address] | | | | | [address] | [place], [place] [address] | | | | | [address] [place], [place] | [place], [place] | | | | | [address] | [address] | | | | | [phone] | | | +--------+ + + + [...] | 07/19/ | Office | Gastroenterology | [facility], | | | 2019 | Visit | | [address] | | | | | | [place] [address] | | | | | | [place] | | | | | | [address] | | | | | | | | +--------+---------+ + + + as of this encounter Visit Diagnoses Not on filein this encounter"
--- OUTSIDE RECORDS SUMMARY | ~2018-06-28 | XMS | Encounter Summary ---
Demographics + + + | Address | [address] | | | [place] [address] | + + + | Home Phone | | + + + | Preferred Language | Unknown | + + + | Marital Status | | + + + | Temple Affiliation | Unknown | + + + | Race | Unknown | + + + | Ethnic Group | Unknown | + + + Author + + + | Author | [facility] | | | and [place] | + + + | Organization | [facility] | | | and [place] [...] Team Providers + +------+ + | Care Mangle Press Catcher Name | Role | Phone | + +------+ + | Sneha Deutsch PA-C | PCP | | + +------+ + Reason for Visit + + + | Reason | Comments | + + + | Appointment | | + + + Encounter Details +--------+ + + + + | Date | Type | Department | Care Team | Description | +--------+ + + + + | 06/15/ | Telephone | [facility] [address] [place] | [facility], | Appointment | | 2019 | | GASTROENTEROLOGY | [address] | | | | | [address] | [place], [place] [address] | | | | | [address] [place], [place] | [place], [place] | | | | | [address] | [address] | | | | | [phone] | | | +--------+ + + + [...] | 07/19/ | Office | Gastroenterology | [facility], | | | 2019 | Visit | | [address] | | | | | | [place] [address] | | | | | | [place] | | | | | | [address] | | | | | | | | +--------+---------+ + + + as of this encounter Visit Diagnoses Not on filein this encounter"
--- OUTSIDE RECORDS SUMMARY | ~2018-06-28 | XMS | Encounter Summary ---
Demographics + + + | Address | [address] | | | [place] [address] | + + + | Home Phone | | + + + | Preferred Language | Unknown | + + + | Marital Status | Single | + + + | Mandaeism Affiliation | Unknown | + + + | Race | Unknown | + + + | Ethnic Group | Unknown | + + + Author + + + | Author | [facility] | + + + | Organization | [facility] | + + + | Address | Unknown | + + + | Phone | Unavailable | + + + Support + + +---------+ + | Name | Relationship | Address | Phone | + + +---------+ + | Shar Orourke | ECON | Unknown | | + + +---------+ + Care Team Providers + +------+ + | Care Territory Development Manager Name | Role | Phone | + +------+ + | Tayler Raffyyemi Primary | PCP | | + +------+ + Encounter Details +--------+ + + + + | Date | Type | Department | Care Team | Description | +--------+ + + + + | 05/10/ | Ancillary | [facility] | Keke Woods MD | Cerebrovascular | | 2019 | Procedure | ECHO | [address] | accident (CVA), | | | | | [place] | unspecified | | | | | [id number] | mechanism (HCC) | | | | [...] Treatment Not on fileas of this encounter Procedures + +--------+ + + + | Procedure Name | Priori | Date/Time | Associated Diagnosis | Comments | | | ty | | | | + +--------+ + + + | ECHO OUTSIDE | Routin | 05/10/2018 | Cerebrovascular | Results for this | | INTERPRETATION | e | 4:13 PM | accident (CVA), | procedure are in the | | STANDARD | | PST | unspecified | results section. | | | | | mechanism (HCC) | | + +--------+ + + + in this encounter Results ECHO outside interpretation standard [...] Rj Waggoner Date of : 1960 | [facility] | | Performing Physician: Nicho Bloom | [...] MV A Martín: 0.88 m/s MV Dec [place]: 5.85 m/s2 MV DecT: | | | [...] | | mmHg TR Vmax: 2.32 m/s Communications Administrator: PATRICIA Authenticated by: | | | Nicho [facility] Report Date/Time: 05-10-2018 19:7:54 | | + + + + + | Procedure Note | + + | Herve, Rad Results In - 05/10/2018 7:08 PM PST Patient Name: Douglas Waggoner of | | : 1960ccession: [id number] Physician: Nicho | | Alsamara INDICATIONS------ | | -----cvaCONCLUSIONS 1. The left [...] mlLAESV Index (A-L): 27.77 ml/m2LAAs A2C: 13.87 [id number] A-L A2C: 40.60 | | mlLALs A2C: 4.02 cmLAAs A4C: 16.03 [id number] A-L A4C: 47.14 mlLALs A4C: 4.66 | | cmRAAs: 11.89 [id number] A-L: 25.80 mlRAESV MOD: 25.17 mlRALs: 4.65 cmTAPSE: | | 1.85 cmAV maxP.48 mmHgAV meanP.95 mmHgAV Vmax: 1.17 m/Umesh Vmean: 0.82 | | m/Umesh VTI: 25.44 cmLVOT maxP.13 mmHgLVOT meanP.22 mmHgLVOT Vmax: 1.01 | | m/sLVOT Vmean: 0.71 m/sLVOT VTI: 21.34 cmMV A Martín: 0.88 m/sMV Dec [place]: 5.85 | | m/s2MV DecT: 179.39 msMV E Martín: 1.05 m/sMV E/A Ratio: 1.18 MV PHT: 52.02 msMVA | | By PHT: 4.22 tc2Ltzhiv e': 0.07 m/sSeptal E/e': 14.24 Lateral e': 0.08 | | m/sLateral E/e': 11.73 RAP: 5 mmHgRVSP: 26.68 mmHgTR maxP.68 mmHgTR Vmax: | | 2.32 m/sSonographer: DBSAuthenticated by: Nicho [facility] Date/Time: 05-10-2018 | | 19:7:54IMPRESSION:1. The left [...] A Martín: 0.88 m/s | |MV Dec [place]: 5.85 m/s2 | |MV DecT: 179.39 ms [...] |TR Vmax: 2.32 m/s | | | |Communications Administrator: DBS | |Authenticated by: Nicho Odessairena | |Report Date/Time: 05-10-2018 19:7:54 | | [...] | + + + + + | [facility] | [address] | [place] [address] | | + + + + + in this encounter Visit Diagnoses + + | Diagnosis | + + | Cerebrovascular accident (CVA), unspecified mechanism (HCC) | + +"
--- OUTSIDE RECORDS SUMMARY | ~2018-06-28 | XMS | Encounter Summary ---
Demographics + + + | Address | [address] | | | [place] [address] | + + + | Home Phone [...] + + + | Author | [facility] | + + + | Organization | [facility] | + + + | Address | Unknown | + + + | Phone | Unavailable | + + + Support + + +---------+ + | Name | Relationship | Address | Phone | + + +---------+ + | Shar Orourke | ECON | Unknown | | + + +---------+ + Care Team Providers + +------+ + | Care Advertising Manager Name | Role | Phone | [...] | unspecified | | | | | [id number] | mechanism (HCC) | | | | [...] Rj Waggoner Date of : 1960 | [facility] | | Performing Physician: Nicho Bloom [...] MV A Martín: 0.88 m/s MV Dec [place]: 5.85 m/s2 MV DecT: | | | [...] | | mmHg TR Vmax: 2.32 m/s Cable Swager: PATRICIA Authenticated by: | | | [facility] Report Date/Time: 05-10-2018 19:7:54 | | + + + + + | Procedure Note | + + | Brian Edgar In - 05/10/2018 7:08 PM PST Patient Name: Douglas Waggoner of | | : 1960ccession: [id number] Physician: Nicho | | Merle INDICATIONS------ | [...] mlLAESV Index (A-L): 27.77 ml/m2LAAs A2C: 13.87 ip4VKRYO A-L A2C: 40.60 | | mlLALs A2C: 4.02 cmLAAs A4C: 16.03 kt0OUVEV A-L A4C: 47.14 mlLALs A4C: 4.66 | | cmRAAs: 11.89 ff1WPCGJ A-L: 25.80 mlRAESV MOD: 25.17 mlRALs: 4.65 cmTAPSE: | | 1.85 cmAV maxP.48 mmHgAV meanP.95 mmHgAV Vmax: 1.17 m/Umesh Vmean: 0.82 | | m/Umesh VTI: 25.44 cmLVOT maxP.13 mmHgLVOT meanP.22 mmHgLVOT Vmax: 1.01 | | m/sLVOT Vmean: 0.71 m/sLVOT VTI: 21.34 cmMV A Martín: 0.88 m/sMV Dec [place]: 5.85 | | m/s2MV DecT: 179.39 msMV E Martín: 1.05 m/sMV E/A Ratio: 1.18 MV PHT: 52.02 msMVA | | By PHT: 4.22 gy8Ixpwch e': 0.07 m/sSeptal E/e': 14.24 Lateral e': [...] A Martín: 0.88 m/s | |MV Dec [place]: 5.85 m/s2 | |MV DecT: 179.39 ms [...] |TR Vmax: 2.32 m/s | | | |Cable Swager: DBS | |Authenticated by: Nicho Bloom | [...] | + + + + + | [facility] | [address] | [place] [address] | | + + + + + in this encounter Visit Diagnoses + + | Diagnosis | + + | Cerebrovascular accident (CVA), unspecified mechanism (HCC) | + +"
--- OUTSIDE RECORDS SUMMARY | ~2018-06-28 | XMS | Encounter Summary ---
Demographics + + + | Address | [address] | | | [place] [address] | + + + | Home Phone | | + + + | Preferred Language | Unknown | + + + | Marital Status | Single | + + + | Synagogue Affiliation | Unknown | + + + | Race | Unknown | + + + | Ethnic Group | Unknown | + + + Author + + + | Author | [facility] | + + + | Organization | [facility] | + + + | Address | Unknown | + + + | Phone | Unavailable | + + + Support + + +---------+ + | Name | Relationship | Address | Phone | + + +---------+ + | Shar Orourke | ECON | Unknown | | + + +---------+ + Care Team Providers + +------+ + | Care Truck Packer Name | Role | Phone | + [...] | unspecified | | | | | [id number] | mechanism (HCC) | | | | [...] Rj Waggoner Date of : 1960 | [facility] | | Performing Physician: Nicho Bloom [...] MV A Martín: 0.88 m/s MV Dec [place]: 5.85 m/s2 MV DecT: | | | [...] | | mmHg TR Vmax: 2.32 m/s Plant Sciences Professor: PATRICIA Authenticated by: | | | Nicho [facility] Report Date/Time: 05-10-2018 19:7:54 | | + + + + + | Procedure Note | + + | Herve, Rad Results In - 05/10/2018 7:08 PM PST Patient Name: Douglas Waggoner of | | : 1960ccession: [id number] Physician: Nicho | | Alsamara INDICATIONS------ | [...] mlLAESV Index (A-L): 27.77 ml/m2LAAs A2C: 13.87 [id number] A-L A2C: 40.60 | | mlLALs A2C: 4.02 cmLAAs A4C: 16.03 en7NCAZY A-L A4C: 47.14 mlLALs A4C: 4.66 | | cmRAAs: 11.89 ng8WEMSB A-L: 25.80 mlRAESV MOD: 25.17 mlRALs: 4.65 cmTAPSE: | | 1.85 cmAV maxP.48 mmHgAV meanP.95 mmHgAV Vmax: 1.17 m/Umesh Vmean: 0.82 | | m/Umesh VTI: 25.44 cmLVOT maxP.13 mmHgLVOT meanP.22 mmHgLVOT Vmax: 1.01 | | m/sLVOT Vmean: 0.71 m/sLVOT VTI: 21.34 cmMV A Martín: 0.88 m/sMV Dec [place]: 5.85 | | m/s2MV DecT: 179.39 msMV E Martín: 1.05 m/sMV E/A Ratio: 1.18 MV PHT: 52.02 msMVA | | By PHT: 4.22 hh7Doksgc e': 0.07 m/sSeptal E/e': 14.24 Lateral e': 0.08 | | m/sLateral E/e': 11.73 RAP: 5 mmHgRVSP: 26.68 mmHgTR maxP.68 mmHgTR Vmax: | | 2.32 m/sSonographer: DBSAuthenticated by: Nicho [facility] Date/Time: 05-10-2018 | | 19:7:54IMPRESSION:1. The left [...] A Martín: 0.88 m/s | |MV Dec [place]: 5.85 m/s2 | |MV DecT: 179.39 ms [...] |TR Vmax: 2.32 m/s | | | |Plant Sciences Professor: DBS | |Authenticated by: Nicho Odessairena | [...] | [address] | [place] [address] | | + + + + + in this encounter Visit Diagnoses + + | Diagnosis | + + | Cerebrovascular accident (CVA), unspecified mechanism (HCC) | + +"
--- OUTSIDE RECORDS SUMMARY | ~2018-06-28 | XMS | Clinical Summary ---
Demographics + + + | Address | [address] | | | [place] [address] | + + + | Home Phone | | + + + | Preferred Language | Unknown | + + + | Marital Status | | + + + | Worship Affiliation | Unknown | + + + | Race | Unknown | + + + | Ethnic Group | Unknown | + + + Author + + + | Author | [facility] | | | and [place] | + + + | Organization | [facility] | | | and [place] | + + + | Address | Unknown | + + + | Phone | Unavailable | + + + Support + + +---------+ + | Name | Relationship | Address | Phone | + + +---------+ + | Yudith Cifuentes | ECON | Unknown | | + + +---------+ + | Shar Orourke | ECON | Unknown | | + + +---------+ + Care Team Providers + +------+ + | Care Manager Sterile Name | Role | Phone | + [...] + + + Current Medications + + + +---------+------+------+-------+ | Prescription | Sig. | Disp. | Refills | Star | End | Statu | | | | | | t | Date | s | | | | | | Date | | | + + + +---------+------+------+-------+ | gabapentin | Take 900 mg by mouth | | | | | Activ | | (NEURONTIN) 300 mg | 3 times daily. | | | | | e | | capsule | | | | | | | + + + +---------+------+------+-------+ | insulin glargine | Inject under the | | | | | Activ | | (LANTUS) 100 | skin nightly. | | | | | e | | units/mL injection | | | | | | | | (vial) | | | | | | | + + + +---------+------+------+-------+ | lisinopril | Take 40 mg by mouth | | | | | Activ | | (PRINIVIL,ZESTRIL) [...] Take 5 mg by mouth | | | | | Activ | | (ONGLYZA) 5 mg TABS | Daily. | | | | | e | | tablet | | | | | | | + + + +---------+------+------+-------+ | cholecalciferol | Take 5,000 Units by | | | | | Activ | | (VITAMIN D-3) 5,000 | mouth Daily. | | | | | e | | units/mL liquid | | | | | | | + + + +---------+------+------+-------+ | pantoprazole | Take 40 mg by mouth | | | | | Activ | | (PROTONIX) 40 mg | every morning | | | | | e | | tablet | (before breakfast). | | | | | | + + + +---------+------+------+-------+ | spironolactone | Take 25 mg by mouth | | | | | Activ | | (ALDACTONE) [...] | + + + +---------+------+------+-------+ | insulin lispro | Inject 10 Units | | | 03/1 | 03/1 | Expir | | (HUMALOG) 100 | under the skin 3 | | | 20 | 3/20 | ed | | units/mL injection | times daily. | | | 18 | 19 | | | (vial) | | | | | | | + + + +---------+------+------+-------+ | propranolol | Take 10 mg by mouth | | | 03/1 | 03/1 | Expir | | (INDERAL) 10 mg | 4 times daily. | | | 3/20 | 3/20 | ed | | tablet | | | | 18 | 19 | | + + + +---------+------+------+-------+ Active Problems + + + | Problem | Noted Date | + + + | Alcoholic cirrhosis of liver without ascites (HCC) | 08/03/2017 | + + + | Fibromyalgia | 08/03/2017 | + + + | Hepatitis C virus infection | 08/03/2017 | + + + | Type 2 diabetes mellitus with hyperglycemia, with long-term | 08/03/2017 | | current use of insulin (HCC) | | + + + | Acute posthemorrhagic anemia | 06/06/2017 | + + + | Diabetic ketoacidosis without coma associated with type 2 | 06/06/2017 | | diabetes mellitus (HCC) | | + + + | Hematemesis with nausea | 06/06/2017 | + + + | Severe protein-calorie malnutrition (HCC) | 06/06/2017 | + + + Encounters [...] | Alireza, | Other (paracentesis) | | 2018 | | | ASHLEY [...] + | Blood Pressure | 150/92 | 11/12/2017 0904 PDT | + + + + | [...] | 57.2 kg (126 lb 1.7 | 11/12/2017903 PDT | | | oz) | | + + + + | Height | 156.2 cm (5' 1.5") | 08/17/2017 1015 PDT | + + + + | Body Mass Index | 23.44 | 11/12/2017 0904 PDT | + + + + Plan of Treatment +--------+---------+ + + + | Date | Type | Specialty | Care Team | Description | +--------+---------+ + + + | 07/19/ | Office | | [facility], | | | 2019 | Visit | | [place] [address] | | | | | [address] [place] [address] | | | | | | [place] | | | | | | [phone] | | | | | | | | +--------+---------+ + + + + + + + + | Health Maintenance | Due Date | Last Done | Comments | + + + + + | Diabetic Eye Exam | | | | | | 0 | | | + + + + + | Diabetic Foot Exam | | | | | | 0 | | | + + + + + | Hemoglobin A1c Q3 | | | | | Months | 0 | | | + + [...] | + + + + + | BREAST CANCER | | | | | SCREENING (MAMM Q2 | 2 | | | | YEARS 50-74) | | | | + + [...] Last 3 Months Insurance + +--------+ +--------+ +---------+ | Payer | Benefi | Subscriber | Type | Phone | Address | | | t Plan | ID | | | | | | / | | | | | | | Group | | | | | + +--------+ +--------+ +---------+ | [employer] | MODA | [id number] | Medica | [phone] | | MEDICAID HMO | HEALTH | | id | 9821 | | | | [place] | | | | | | | [place] | | | | | + +--------+ +--------+ +---------+ + +--------+ +--------+ + + | Guarantor Name | Accoun | Relation to | Date | Phone | Billing Address | | | t Type | Patient | of | | | | | | | | | | + +--------+ +--------+ + + | BRAEDEN CIFUENTES | Person | Self [birth year] Home: | [address] | | | al/Fam | | 1959 | [phone] | [place], [place] | | | nader | | | [phone] | + +--------+ +--------+ + +
--- OUTSIDE RECORDS SUMMARY | ~2018-06-28 | XMS | Encounter Summary ---
Demographics + + + | Address | [address] | | | [place] [address] | + + + | Home Phone | | + + + | Preferred Language | Unknown | + + + | Marital Status | | + + + | Synagogue Affiliation | Unknown | + + + | Race | Unknown | + + + | Ethnic Group | Unknown | + + + Author + + + | Author | [facility] | | | and [place] | + + + | Organization | [facility] | | | and [place] | [...] Team Providers + +------+ + | Care Medical Records Analyst Name | Role | Phone | + [...] | 06/15/ | Telephone | [place] | [facility], | Appointment | | 2019 | | GASTROENTEROLOGY | [place] [address] | | | | | [address] [place] | [place] | | | | | [address] [place], [place] | [place], [place] | | | | | [address] | [address] | | | | | [phone] | | | +--------+ + + + [...] | 07/19/ | Office | Gastroenterology | [facility], | | | 2019 | Visit | | ASH[place] Dixon [address] | | | | | | [address] | | | | | | [place] | | | | | | [address] | | | | | | | | +--------+---------+ + + + as of this encounter Visit Diagnoses Not on filein this encounter"
--- OUTSIDE RECORDS SUMMARY | ~2018-06-28 | XMS | Encounter Summary ---
Demographics + + + | Address | [address] | | | [place] [address] | + + + | Home Phone | | + + + | Preferred Language | Unknown | + + + | Marital Status | Single | + + + | Jainism Affiliation | Unknown | + + + | Race | Unknown | + + + | Ethnic Group | Unknown | + + + Author + + + | Author | [facility] | + + + | Organization | [facility] | + + + | Address | Unknown | + + + | Phone | Unavailable | + + + Support + + +---------+ + | Name | Relationship | Address | Phone | + + +---------+ + | Shar Orourke | ECON | Unknown | | + + +---------+ + Care Team Providers + +------+ + | Care Tablet Making Machine Operator Name | Role | Phone | + +------+ + | Mimi Lester Primary | PCP | | + +------+ + Encounter Details +--------+ + + + + | Date | Type | Department | Care Team | Description | +--------+ + + + + | 05/10/ | Ancillary | [facility] | Nicho Bloom, | | | 2019 | Orders | Jenniffer Perez | [address] | | | | | [address] | [address], | | | | | [place] | [place] [address] | | | | | [address] | [phone] | | | | | [phone] | | | +--------+ + + + [...] Treatment Not on fileas of this encounter Visit Diagnoses Not on filein this encounter"
--- OUTSIDE RECORDS SUMMARY | ~2018-06-28 | XMS | Clinical Summary ---
Demographics + + + | Address | [address] | | | [place] [address] | + + + | Home Phone | | + + + | Preferred Language | Unknown | + + + | Marital Status | Single | + + + | Evangelical Affiliation | Unknown | + + + | Race | Unknown | + + + | Ethnic Group | Unknown | + + + Author + + + | Author | [facility] | + + + | Organization | [facility] | + + + | Address | Unknown | + + + | Phone | Unavailable | + + + Support + + +---------+ + | Name | Relationship | Address | Phone | + + +---------+ + | Shar Orourke | ECON | Unknown | | + + +---------+ + Care Team Providers + +------+ + | Care Marine Steam Fitter Name | Role | Phone | + [...] + +---------+---------+------+------+-------+ | insulin lispro, | Inject 0-6 Units | 10 mL | 0 | 03/1 | | Activ | | human, (HUMALOG) 100 | into the skin 3 | | | 3/20 | | e | | UNIT/ML | (three) times daily | | | 18 | | | | injectionIndications | before meals. Blood | | | | | | | : Electrolyte and | GlucoseLow Dose <70 | | | | | | | fluid disorder | Initiate | | | | | | | | HYPOGLYCEMIA | | | | | | | | -6992 | | | | | | | | [id number] units | | | | | | | | 150-199 1 | | | | | | | | [id number] 2 units | | | | | | | | 250-299 3 units | | | | | | | | 300-3494 | | | | | | | | [id number] | | | | | | | | units>400 | | | | | | | | 6 units | | | | | | + + +---------+---------+------+------+-------+ | insulin lispro, | Inject 10 Units into | 10 mL | 0 | 03/ | | Activ | | human, (HUMALOG) [...] | Fibromyalgia | | + + + Encounters +--------+ + + + + | Date | Type | Specialty | Care Team | Description | +--------+ + + + + | 05/10/ | Ancillary | | Keke Woods MD | Cerebrovascular | | 2019 | Procedure | | | accident (CVA), | | | | | | unspecified | | | | | | mechanism (HCC) | +--------+ + + + + | 05/10/ | Ancillary | | Keke Woods MD | Cerebrovascular | | 2019 | Orders | | | accident (CVA), | | | | | | unspecified | | | | | | mechanism (HCC) | +--------+ + + + + | 02/11/ | Ancillary | | Nicho Bloom, | | | 2018 | Orders | | MD | | +--------+ + + + + from Last 3 Months Immunizations + + + + | Name [...] up with | | | 23-valent | elmo) | | + + + + Social [...] + Plan of Treatment Not on file Procedures + +--------+ + + + | [...] | | + +--------+ + + + from Last 3 Months Results ECHO outside interpretation standard (05/10/2018 4:13 [...] | + + + | Patient Name: Braeden Cifuentes Date of : 1960 | [facility] | | Performing Physician: Nicho Bloom | [...] MV A Martín: 0.88 m/s MV Dec [place]: 5.85 m/s2 MV DecT: | | | [...] | | mmHg TR Vmax: 2.32 m/s Meteorology Professor: PATRICIA Authenticated by: | | | [facility] Report Date/Time: 05-10-2018 19:7:54 | | + + + + + | Procedure Note | + + | Herve, Rad Results In - 05/10/2018 7:08 PM PST Patient Name: Douglas Cifuentes of | | : 1960ccession: [id number] Physician: Nicho | [facility] IND[facility] | | -----cvaCONCLUSIONS 1. The left [...] mlLAESV Index (A-L): 27.77 ml/m2LAAs A2C: 13.87 of3CFHJH A-L A2C: 40.60 | | mlLALs A2C: 4.02 cmLAAs A4C: 16.03 ne5SFCYX A-L A4C: 47.14 mlLALs A4C: 4.66 | | cmRAAs: 11.89 hv4IBFLK A-L: 25.80 mlRAESV MOD: 25.17 mlRALs: 4.65 cmTAPSE: | | 1.85 cmAV maxP.48 mmHgAV meanP.95 mmHgAV Vmax: 1.17 m/Umesh Vmean: 0.82 | | m/Umesh VTI: 25.44 cmLVOT maxP.13 mmHgLVOT meanP.22 mmHgLVOT Vmax: 1.01 | | m/sLVOT Vmean: 0.71 m/sLVOT VTI: 21.34 cmMV A Martín: 0.88 m/sMV Dec [place]: 5.85 | | m/s2MV DecT: 179.39 msMV E Martín: 1.05 m/sMV E/A Ratio: 1.18 MV PHT: 52.02 msMVA | | By PHT: 4.22 ef5Qwubnh e': 0.07 m/sSeptal E/e': 14.24 Lateral e': 0.08 | | m/sLateral E/e': 11.73 RAP: 5 mmHgRVSP: 26.68 mmHgTR maxP.68 mmHgTR Vmax: | | 2.32 m/sSonographer: DBSAuthenticated by: Nicho [facility] Date/Time: 05-10-2018 | | 19:7:54IMPRESSION:1. The [...] A Martín: 0.88 m/s | |MV Dec [place]: 5.85 m/s2 | |MV DecT: 179.39 ms [...] |TR Vmax: 2.32 m/s | | | |Meteorology Professor: DBS | |Authenticated by: Nicho Bloom | [...] | + + + + + | [facility] | [address] | [place] [address] | | + + + + + from Last 3 Months Insurance + +--------+ +------+-------+---------+ | Payer | Benefi | Subscriber | Type | Phone | Address | | | t Plan | ID | | | | | | / | | | | | | | Group | | | | | + +--------+ +------+-------+---------+ | [employer] | ODS | [id number] | | | | | | HEALTH [...] | [address] | | | al/Fam | | 1959 | [phone] | [place] | | | [place] | | | [phone] | + +--------+ +--------+ + +
--- OUTSIDE RECORDS SUMMARY | ~2018-06-28 | XMS | Clinical Summary ---
Demographics + + + | Address | [address] | | | [place] [address] | + + + | Home Phone | | + + + | Preferred Language | Unknown | + + + | Marital Status | | + + + | Anglican Affiliation | Unknown | + + + | Race | Unknown | + + + | Ethnic Group | Unknown | + + + Author + + + | Author | [facility] | | | and [place] | + + + | Organization | [facility] | | | and [...] Team Providers + +------+ + | Care Coronary Care Unit Nurse Name | Role | Phone | + [...] + | 07/19/ | Office | | [facility], | | | 2019 | Visit | | [place] [address] | | | | | | [address] | | | | | | [place] | | | | | | [phone] | | | | | | | [...] | [employer] | MODA | [id number] | Medica | [phone] | | [...] | [place] | | | [phone] | [phone] | + +--------+ +--------+ + +
--- OUTSIDE RECORDS SUMMARY | ~2018-06-28 | XMS | Encounter Summary ---
Demographics + + + | Address | [address] | | | [place] [address] | + + + | Home Phone | | + + + | Preferred Language | Unknown | + + + | Marital Status | Single | + + + | Holiness Affiliation | Unknown | + + + | Race | Unknown | + + + | Ethnic Group | Unknown | + + + Author + + + | Author | [facility] | + + + | Organization | [facility] | + + + | Address | Unknown | + + + | Phone | Unavailable | + + + Support + + +---------+ + | Name | Relationship | Address | Phone | + + +---------+ + | Shar Orourke | ECON | Unknown | | + + +---------+ + Care Team Providers + +------+ + | Care Tile And Mottle Supervisor Name | Role | Phone | + [...] | | | [place] | [place] [address] | | | | | [address] | [phone] | | | | | [phone] | | | +--------+ + + + [...]
--- OUTSIDE RECORDS SUMMARY | ~2018-06-28 | XMS | Clinical Summary ---
Demographics + + + | Address | [address] | | | [place] [address] | + + + | Home Phone | | + + + | Preferred Language | Unknown | + + + | Marital Status | Single | + + + | Mu-Ism Affiliation | Unknown | + + + | Race | Unknown | + + + | Ethnic Group | Unknown | + + + Author + + + | Author | [facility] | + + + | Organization | [facility] | + + + | Address | Unknown | + + + | Phone | Unavailable | + + + Support + + +---------+ + | Name | Relationship | Address | Phone | + + +---------+ + | Shar Orourke | ECON | Unknown | | + + +---------+ + Care Team Providers + +------+ + | Care Engineering Design Supervisor Name | Role | Phone | [...] | | | | | | | [id number] | | | | | | | | [id number] units | | | | | | | | [phone] 1 | | | | | | | | [id number] 2 units | | | | | | | | [phone] 3 units | | | | | | | | [phone] | | | | | | | | [id number] | | | | | | | [...] MV A Martín: 0.88 m/s MV Dec Larimer: 5.85 m/s2 MV DecT: | | | [...] | | mmHg TR Vmax: 2.32 m/s Wax Blender: PATRICIA Authenticated by: | | | [facility] Report Date/Time: 05-10-2018 19:7:54 | | + + + + + | Procedure Note | + + | Herve, Rad Results In - 05/10/2018 7:08 PM PST Patient Name: Douglas Cifuentes of | | : 1960ccession: [id number] Physician: Nicho | [facility] INDICATIONS------ | | -----cvaCONCLUSIONS 1. The left [...] mlLAESV Index (A-L): 27.77 ml/m2LAAs A2C: 13.87 [id number] A-L A2C: 40.60 | | mlLALs A2C: 4.02 cmLAAs A4C: 16.03 [id number] A-L A4C: 47.14 mlLALs A4C: 4.66 | | cmRAAs: 11.89 [id number] A-L: 25.80 mlRAESV MOD: 25.17 mlRALs: 4.65 cmTAPSE: | | 1.85 cmAV maxP.48 mmHgAV meanP.95 mmHgAV Vmax: 1.17 m/Umesh Vmean: 0.82 | | m/Umesh VTI: 25.44 cmLVOT maxP.13 mmHgLVOT meanP.22 mmHgLVOT Vmax: 1.01 | | m/sLVOT Vmean: 0.71 m/sLVOT VTI: 21.34 cmMV A Martín: 0.88 m/sMV Dec Larimer: 5.85 | | m/s2MV DecT: 179.39 msMV E Martín: 1.05 m/sMV E/A Ratio: 1.18 MV PHT: 52.02 msMVA | | By PHT: 4.22 id6Lzojsw e': 0.07 m/sSeptal E/e': 14.24 Lateral e': 0.08 | | m/sLateral E/e': 11.73 RAP: 5 mmHgRVSP: 26.68 mmHgTR maxP.68 mmHgTR Vmax: | | 2.32 m/sSonographer: DBSAuthenticated by: Nicho [facility] Date/Time: 05-10-2018 | | 19:7:54IMPRESSION:1. The [...] A Martín: 0.88 m/s | |MV Dec Larimer: 5.85 m/s2 | |MV DecT: 179.39 ms [...] |TR Vmax: 2.32 m/s | | | |Wax Blender: DBS | |Authenticated by: Nicho Bloom | [...] [facility] | [address] | [place] [address] | | + + + + + [...] | [employer] PLAN | ODS | [id number] | | | | | | HEALTH [...] | nader | | | [phone] | [phone] | + +--------+ +--------+ + +
[~2018-06-28 16:29] MED LIST changes: +ALDACTONE25 MG PO; +CLOPIDOGREL75 MG PO; +GABAPENTIN300 MG PO; +LISINOPRIL5 MG PO; +ONGLYZA5 MG PO; +PROPRANOLOL HCL20 MG PO; +VITAMIN D35000 UNIT PO
--- OUTSIDE RECORDS SUMMARY | 2018-06-28 16:32 | XMS ---
PreManage Notification: BRAEDEN CIFUENTES Security Char Filter Tank Tender Events No recent Security Events currently on file CRITERIA MET - [facility] - Has Care Guidelines [facility] MARSHALL THOMAS Registered Nurse: [facility] 05/10/2018-Current JULIUS PHONE: [phone] Ama has no Care Guidelines for this patient. Care History Medical/Surgical 05/10/2018 [facility] \T\middot;\T\nbsp; PATIENT IS A [employer] MEMBER. \T\middot;\T\nbsp; PLEASE REFER PATIENT TO [facility] FOR NON EMERGENT MEDICAL NEEDS. \T\middot;\ T\nbsp; [facility] CAN SEE PATIENTS SAME DAY FOR APTS IF PATIENT CALLS FIRST THING IN THE MORNING. E.D. VISIT COUNT (12 MO.) 1 [facility] 3 [facility] TOTAL 4 NOTE: Visits indicate total known visits. ED/UCC VISIT TRACKING (12 MO.) 06/28/2018 16:29 [facility] [place] TYPE: Emergency COMPLAINT: - ABD PAIN 05/09/2018 12:32 [facility] [place] TYPE: Emergency COMPLAINT: - ALT LOC 11/01/2017 14:29 [facility] TYPE: Emergency COMPLAINT: - LEFT SIDE UQP 08/10/2017 00:13 [facility] [place] TYPE: Emergency COMPLAINT: - FLANK PAIN DIAGNOSES: - Type 2 diabetes mellitus with hyperglycemia - Other chronic pain - Allergy status to analgesic agent status - Other jail (current) drug therapy - Unspecified abdominal pain - Nicotine dependence, cigarettes, uncomplicated - Unspecified cirrhosis of liver - MCC (current) use of insulin INPATIENT VISIT TRACKING (12 MO.) 05/10/2018 10:48 [facility] [place] TYPE: Medical Surgical COMPLAINT: - HYPOGLYCEMIA/HYPOTHERMIA DIAGNOSES: - Other jail (current) drug therapy - Pneumonia due to other streptococci - moth exterminator (current) use of insulin - Pneumonia, unspecified organism - Unspecified cirrhosis of liver - Type 2 diabetes mellitus with hypoglycemia without coma - Other jail (current) drug therapy - Exposure to other specified factors, initial encounter - Nicotine dependence, unspecified, uncomplicated - Other chronic pain - Contusion of unspecified part of head, initial encounter - Exposure to other specified factors, initial encounter - Contusion of unspecified part of head, initial encounter - Allergy status to other drugs, medicaments and biological substances status - Unspecified viral hepatitis C without hepatic coma - Other psychoactive substance abuse, in remission - Essential (primary) hypertension - Other chronic pain - Cerebral infarction, unspecified - Nicotine dependence, unspecified, uncomplicated - Unspecified cirrhosis of liver - moth exterminator (current) use of insulin - Essential (primary) hypertension - Other psychoactive substance abuse, in remission - Hypothermia, initial encounter - Pneumonia due to other streptococci - Cerebral infarction, unspecified - Allergy status to other drugs, medicaments and biological substances status - Unspecified viral hepatitis C without hepatic coma - Type 2 diabetes mellitus with hypoglycemia without coma - Hypothermia, initial encounter [email or web address]
[2018-06-28] MEDS ORDERED: ZOFRAN4 MG PO (18:58)
[2018-06-28] MEDS ORDERED: OXYCODONE HCL5 MG PO (18:58)
== END 2018-06-28 19:13 | disposition home or self-care (01) ==
LOC: ED 16:29
DX: R10.9 Unspecified abdominal pain (principal); E11.9 Type 2 diabetes mellitus without complications; F17.200 Nicotine dependence, unspecified, uncomplicated; Z88.6 Allergy status to analgesic agent; Z79.899 Other long term (current) drug therapy; Z79.4 Long term (current) use of insulin
CPT/HCPCS: 80053; 81001; 83690; 96374; 96375; 99284-25; J2270; J2405

== ENCOUNTER 2018-08-25 23:27 | Emergency (ER) | payer OTHER ==
[~2018-08-25] VITALS: Ht 154.9 cm; Wt 53.5 kg
--- OUTSIDE RECORDS SUMMARY | ~2018-08-25 | XMS | Clinical Summary ---
Demographics + + + | Address | [address] | | | [place] [address] | + + + | Home Phone | | + + + | Preferred Language | Unknown | + + + | Marital Status | Single | + + + | Christian Affiliation | Unknown | + + + | Race | Unknown | + + + | Ethnic Group | Unknown | + + + Author + + + | Author | [facility] | + + + | Organization | [facility] | + + + | Address | Unknown | + + + | Phone | Unavailable | + + + Support + + +---------+ + | Name | Relationship | Address | Phone | + + +---------+ + | Shar Orourke | ECON | Unknown | | + + +---------+ + Care Team Providers + +------+ + | Care Tank Filler Name | Role | Phone | + +------+ + | Mimi Lester Primary | PP | | + +------+ + Allergies + + + + + + | Active Allergy | Reactions | Severity | Noted | Comments | | | | | Date | | + + + + + + | Aspirin | Tinitus | Low | 06/07/19 | | | | | | 18 | | + + + + + + Current Medications + + +---------+---------+------+------+-------+ | Prescription | Sig. | Disp. | Refills | Star | End | Statu | | | | | | t | Date | s | | | | | | Date | | | + + +---------+---------+------+------+-------+ | metFORMIN | Take 500 mg by mouth | | | | | Activ | | (GLUCOPHAGE) 1000 MG | 2 (two) times daily | | | | | e | | tablet | with meals. | | | | | | + + +---------+---------+------+------+-------+ | gabapentin | Take 300 mg by mouth | | | | | Activ | | (NEURONTIN) 300 MG | 3 (three) times | | | | | e | | capsule | daily. | | | | | | + + +---------+---------+------+------+-------+ | insulin glargine | Inject 50 Units into | 15 mL | 0 | 03/1 | | Activ | | (LANTUS) 100 UNIT/ML | the skin nightly. | | | 3/20 | | e | | | | | | 18 | | | | injectionIndications | | | | | | | | : Electrolyte and | | | | | | | | fluid disorder | | | | | | | + + +---------+---------+------+------+-------+ | propranolol | Take 1 tablet by | 120 | 0 | 03/1 | | Activ | | (INDERAL) 10 MG | mouth 4 (four) times | tablet | | 3/20 | | e | | tabletIndications: | daily. | | | 18 | | | | Electrolyte and | | | | | | | | fluid disorder | | | | | | | + + +---------+---------+------+------+-------+ | insulin lispro, | Inject 10 Units into | 10 mL | 0 | 03/1 | | Activ | | human, (HUMALOG) 100 | the skin 3 (three) | | | 3/20 | | e | | UNIT/ML | times daily before | | | 18 | | | | injectionIndications | meals. | | | | | | | : Electrolyte and | | | | | | | | fluid disorder | | | | | | | + + +---------+---------+------+------+-------+ Active Problems + + + | Problem | Noted Date | + + + | Hematemesis with nausea | 06/06/2017 | + + + | Acute posthemorrhagic anemia | 06/06/2017 | + + + | Diabetic ketoacidosis without coma associated with type 2 | 06/06/2017 | | diabetes mellitus (HCC) | | + + + | Severe protein-calorie malnutrition (HCC) | 06/06/2017 | + + + | Alcoholic cirrhosis of liver without ascites (HCC) | | + + + | Type 2 diabetes mellitus with hyperglycemia, with long-term | | | current use of insulin (HCC) | | + + + | Hepatitis C virus infection | | + + + | Fibromyalgia | | + + + Immunizations + + + + | Name | Dates Previously Given | Next Due | + + + + | INFLUENZA PF, | 06/07/2017 | | | QUADRIVALENT | | | | (PED/ADOL/ADULT) | | | + + + + | Pneumococcal | 06/07/2017 (Deferred: - thinks she got it | | | Polysaccharide | at PCP office in [place], will follow up with | | | 23-valent | them) | | + + + + Social History + [...] on file | | + + + Last Filed Vital Signs + + + + | Vital Sign | Reading | Time Taken | + + + + | Blood Pressure | 145/69 | 06/09/2017 3:27 PM PDT | + + + + | Pulse | 83 | 06/09/2017 3:27 PM PDT | + + + + | Temperature | 36.5 C (97.7 F) | 06/09/2017 11:35 AM PDT | + + + + | Respiratory Rate | 17 | 06/09/2017 11:35 AM PDT | + + + + | Oxygen Saturation | 99% | 06/09/2017 11:35 AM PDT | + + + + | Inhaled Oxygen | - | - | | Concentration | | | + + + + | Weight | 65.7 kg (144 lb 14.4 | 06/09/2017 5:20 AM PDT | | | oz) | | + + + + | Height | 156.2 cm (5' 1.5") | 06/07/2017 5:51 AM PDT | + + + + | Body Mass Index | 26.94 | 06/09/2017 5:20 AM PDT | + + + + Plan of Treatment Not on file Results Not on filefrom Last 3 Months Insurance + +--------+ +------+-------+---------+ | Payer | Benefi | Subscriber | Type | Phone | Address | | | t Plan | ID | | | | | | / | | | | | | | Group | | | | | + +--------+ +------+-------+---------+ | [employer]AN | ODS | [id number] | | | | | | HEALTH | | | | | | | PLAN | | | | | + +--------+ +------+-------+---------+ + +--------+ +--------+ + + | Guarantor Name | Accoun | Relation to | Date | Phone | Billing Address | | | t Type | Patient | of | | | | | | | | | | + +--------+ +--------+ + + | BRAEDEN CIFUENTES | Person | Self [birth year] Home: | [address] | | | [address]/Tk | | [phone] | [phone] | [place] | | | nader | | | [phone] | + +--------+ +--------+ + +
--- OUTSIDE RECORDS SUMMARY | ~2018-08-25 | XMS | Clinical Summary ---
Demographics + + + | Address | [address] | | | [place] [address] | + + + | Home Phone | | + + + | Preferred Language | Unknown | + + + | Marital Status | | + + + | Anabaptism Affiliation | Unknown | + + + | Race | Unknown | + + + | Ethnic Group | Unknown | + + + Author + + + | Author | [facility] | | | and [place] | + + + | Organization | [facility] | | | and [place] | + + + | Address | Unknown | + + + | Phone | Unavailable | + + + Support + + +---------+ + | Name | Relationship | Address | Phone | + + +---------+ + | Yudith Waggoner | ECON | Unknown | | + + +---------+ + | Shar Orourke | ECON | Unknown | | + + +---------+ + Care Team Providers + +------+ + | Care Manager Business Development Hospice Name | Role | Phone | + +------+ + | Sneha Deutsch PA-C | PP | | + +------+ + Allergies + + + + + + | Active Allergy | Reactions | Severity | Noted | Comments | | | | | Date | | + + + + + + | Aspirin | Other (See Comments) | Medium | 08/04/19 | Reaction: Tinitus | | | | | 18 | | + + + + + + | Nsaids | Other (See Comments) | Medium | 08/18/19 | Can't take due to | | | | | 18 | liver disease | + + + + + + Medications + + + +---------+------+------+-------+ | Medication | Sig | Dispensed | Refills | Star | End | Statu | | | | | | t | Date | s | | | | | | Date | | | + + + +---------+------+------+-------+ | gabapentin | Take 900 mg by mouth | | 0 | | | Activ | | (NEURONTIN) 300 mg | 3 times daily. | | | | | e | | capsule | | | | | | | + + + +---------+------+------+-------+ | insulin glargine | Inject under the | | 0 | | | Activ | | (LANTUS) 100 | skin nightly. | | | | | e | | units/mL injection | | | | | | | | (vial) | | | | | | | + + + +---------+------+------+-------+ | lisinopril | Take 40 mg by mouth | | 0 | | | Activ | | (PRINIVIL,ZESTRIL) | Daily. | | | | | e | | 40 MG tablet | | | | | | | + + + +---------+------+------+-------+ | metFORMIN | Take 500 mg by mouth | | 0 | | | Activ | | (GLUCOPHAGE) 1000 MG | 2 times daily (with | | | | | e | | tablet | breakfast & | | | | | | | | dinner). | | | | | | + + + +---------+------+------+-------+ | sAXagliptin | Take 5 mg by mouth | | 0 | | | Activ | | (ONGLYZA) 5 mg TABS | Daily. | | | | | e | | tablet | | | | | | | + + + +---------+------+------+-------+ | cholecalciferol | Take 5,000 Units by | | 0 | | | Activ | | (VITAMIN D-3) 5,000 | mouth Daily. | | | | | e | | units/mL liquid | | | | | | | + + + +---------+------+------+-------+ | pantoprazole | Take 40 mg by mouth | | 0 | | | Activ | | (PROTONIX) 40 mg | every morning | | | | | e | | tablet | (before breakfast). | | | | | | + + + +---------+------+------+-------+ | spironolactone | Take 25 mg by mouth | | 0 | | | Activ | | (ALDACTONE) 25 mg | Daily. | | | | | e | | tablet | | | | | | | + + + +---------+------+------+-------+ | lactulose 10 g/15 | Take 30 mLs by mouth | 1892 mL | 2 | 10/28 | | Activ | | mL solution | 3 times daily. | | | 09/16 | | e | | | | | | 18 | | | + + + +---------+------+------+-------+ Active Problems + + + | Problem | Noted Date | + + + | Alcoholic cirrhosis of liver without ascites | 08/03/2017 | + + + | Fibromyalgia | 08/03/2017 | + + + | Hepatitis C virus infection | 08/03/2017 | + + + | Type 2 diabetes mellitus with hyperglycemia, with long-term | 08/03/2017 | | current use of insulin | | + + + | Acute posthemorrhagic anemia | 06/06/2017 | + + + | Diabetic ketoacidosis without coma associated with type 2 | 06/06/2017 | | diabetes mellitus | | + + + | Hematemesis with nausea | 06/06/2017 | + + + | Severe protein-calorie malnutrition | 06/06/2017 | + + + Encounters +--------+ + + + + | Date | Type | Specialty | Care Team | Description | +--------+ + + + + | 07/19/ | Telephone | | Alireza, | Appointment | | 2018 | | | [facility] | | +--------+ + + + + | 06/15/ | Telephone | | [facility] | Appointment | | 2018 | | | [facility] | | +--------+ + + + + | 06/14/ | Telephone | | [facility], | Other (paracentesis) | | 2019 | | | [facility] | | +--------+ + + + + from Last 3 Months Family History + +------+ + + | Relation | Name | Status | Comments | + +------+ + + | Father | | | | + +------+ + + | Mother | | | | + +------+ + + Social History + +-------+ +--------+------+ [...] | | | + +---+---+---+ + + | Tobacco Cessation: Ready to Quit: No; Counseling Given: Yes | + + + + +---------+ + | Alcohol Use | Drinks/We | oz/Week | Comments | | | ek | | | + + +---------+ + | Yes | | | | + + +---------+ + + + + | Sex Assigned at | Date Recorded | | | | + + + | Not on file | | + + + + + + + | Job Start Date | Occupation | Industry | + + + + | Not on file | Not on file | Not on file | + + + + + + + + | Travel History | Travel Start | Travel End | + + + + + + | No recent travel history available. | + + Last Filed Vital Signs + + + + | Vital Sign | Reading | Time Taken | + + + + | Blood Pressure | 150/92 | 11/12/2017903 PDT | + + + + | Pulse | 74 | 11/12/2017903 PDT | + + + + | Temperature | 36.9 C (98.4 F) | 11/12/2017903 PDT | + + + + | Respiratory Rate | 18 | 11/12/2017903 PDT | + + + + | Oxygen Saturation | 99% | 11/12/2017903 PDT | + + + + | Inhaled Oxygen | - | - | | Concentration | | | + + + + | Weight | 57.2 kg (126 lb 1.7 | 11/12/2017 0904 PDT | | | oz) | | + + + + | Height | 156.2 cm (5' 1.5") | 08/17/20171014 PDT | + + + + | Body Mass Index | 23.44 | 08/17/20171014 PDT | + + + + Plan of Treatment + + + + + | Health Maintenance | Due Date | Last Done | Comments | + + + + + | Diabetic Eye Exam | | | | | | 0 | | | + + + + + | Diabetic Foot Exam | | | | | | 0 | | | + + + + + | Hemoglobin A1c | | | | | Screening | 0 | | | + + + + + | Vaccine: | | | | | Dtap/Tdap/Td (1 - | 1 | | | | Tdap) | | | | + + + + + | Vaccine: | | | | | Pneumococcal 19-64 | 1 | | | | (PPSV23 only) Medium | | | | | Risk (1 of 1 - | | | | | PPSV23) | | | | + + + + + | Cervical Cancer | | | | | Screening (Pap) | 2 | | | + + + + + | Breast Cancer | | | | | Screening (Ages | 2 | | | | 50-74) | | | | + + + + + | Colorectal Cancer | | | | | Screening | 2 | | | | (Colonoscopy) | | | | + + + + + | Vaccine: Zoster (1 | | | | | of 2) | 2 | | | + + + + + | Vaccine: Influenza | | 06/07/2017 | | | (Season Ended) | 9 | | | + + + + + | Hepatitis C | Completed | 01/29/2018, 01/29/2018, | | | Screening | | 11/12/2017, Additional history | | | | | exists | | + + + + + Results Not on filefrom Last 3 Months Insurance + +--------+ +--------+ +---------+--------+ | Payer | Benefi | Subscriber | Effect | Phone | Address | Type | | | t Plan | ID | tio | | | | | | / | | Dates | | | | | | Group | | | | | | + +--------+ +--------+ +---------+--------+ | [employer] | MODA | [id number] | 02/23/ | [phone] | | Medica | | MEDICAID HMO | HEALTH | | 2017-P | 1 | | id | | | MDCD | | resent | | | | | | HMO [place] | | | | | | + +--------+ +--------+ +---------+--------+ + +--------+ +--------+ + + | Guarantor Name | Accoun | Relation to | Date | Phone | Billing Address | | | t Type | Patient | of | | | | | | | | | | + +--------+ +--------+ + + | Rj Waggoner | Person | Self [birth year] | [address] | | | [address]mas/T[address] | | 1960 | [phone] | [place] | | | nader | | | [address] (Home) | [phone] | + +--------+ +--------+ + + Advance Directives Patient has advance care planning documents on file. For more information, please contact:[facility] [place] [address]
--- OUTSIDE RECORDS SUMMARY | ~2018-08-25 | XMS | Clinical Summary ---
Demographics + + + | Address | [address] | | | [place] [address] | + + + | Home Phone | | + + + | Preferred Language | Unknown | + + + | Marital Status | | + + + | Confucianism Affiliation | Unknown | + + + | Race | Unknown | + + + | Ethnic Group | Unknown | + + + Author + + + | Author | [facility] | | | and [place] | + + + | Organization | [facility] | | | and [place] | [...] Team Providers + +------+ + | Care Sales Floor Team Member Name | Role | Phone | + [...] | [employer] | MODA | [id number] | 02/23/ | [phone] | | Medica | | MEDICAID HMO [...] | [birth year] | [address] | | | tomas/Tk | | 1960 | [phone] | [place] | | | nader | | | [address] (Home) | [address] | + +--------+ +--------+ + + Advance Directives Patient has advance care planning documents on file. For more information, please contact:[facility] [place] [address]
--- OUTSIDE RECORDS SUMMARY | ~2018-08-25 | XMS | Encounter Summary ---
Demographics + + + | Address | [address] | | | [place] [address] | + + + | Home Phone | | + + + | Preferred Language | Unknown | + + + | Marital Status | | + + + | Protestant Affiliation | Unknown | + + + | Race | Unknown | + + + | Ethnic Group | Unknown | + + + Author + + + | Author | [facility] | | | and [place] | + + + | Organization | [facility] | | | and [place] [...] Team Providers + +------+ + | Care Structural Biologist Name | Role | Phone | + [...] | 06/15/ | Telephone | PM [place] | [facility], | Appointment | | 2019 | | GASTROENTEROLOGY | ASHLEY Dixon [address] | | | | | [address] | [place], [place] [address] | | | | | [address] [place], [place] | [place], [place] | | | | | [address] | [address] | | | | | [phone] | | | +--------+ + + + [...] recent travel history available. | + + documented as of this encounter Plan of Treatment Not on filedocumented as of this encounter Visit Diagnoses Not on filedocumented in this encounter"
--- OUTSIDE RECORDS SUMMARY | ~2018-08-25 | XMS | Encounter Summary ---
Demographics + + + | Address | [address] | | | [place] [address] | + + + | Home Phone | | + + + | Preferred Language | Unknown | + + + | Marital Status | | + + + | Yazidi Affiliation | Unknown | + + + | Race | Unknown | + + + | Ethnic Group | Unknown | + + + Author + + + | Author | [facility] | | | and [place] | + + + | Organization | [facility] | | | and [place] [...] Team Providers + +------+ + | Care Java J2Ee Lead Name | Role | Phone | + [...] + + | 07/19/ | Telephone | PM [place] | [facility], | Appointment | | 2019 | | GASTROENTEROLOGY | ASHLEY Dixon [address] | | | | | [address] [place] | [place], [place] [address] | | | | | [address] [place], [place] | [place], [place] | | | | | [address] | [address] | | | | | [phone] | | | +--------+ + + + [...]
--- OUTSIDE RECORDS SUMMARY | ~2018-08-25 | XMS | Encounter Summary ---
Demographics + + + | Address | [address] | | | [place] [address] | + + + | Home Phone | | + + + | Preferred Language | Unknown | + + + | Marital Status | | + + + | Presybeterian Affiliation | Unknown | + + + | Race | Unknown | + + + | Ethnic Group | Unknown | + + + Author + + + | Author | [facility] | | | and [place] | + + + | Organization | [facility] | | | and [place] [...] Team Providers + +------+ + | Care Senior Solutions Consultant Name | Role | Phone | + [...] + + | 06/14/ | [facility], | Other (paracentesis) | | 2019 | | GASTROENTEROLOGY | ASHLEY Dixon [address] | | | | | [address] [place] | [place], [place] [address] | | | | | [address] [place], [place] | [place], [place] | | | | | [address] | [address] | | | | | [phone] | | | +--------+ + + + [...]
--- OUTSIDE RECORDS SUMMARY | ~2018-08-25 | XMS | Encounter Summary ---
Demographics + + + | Address | [address] | | | [place] [address] | + + + | Home Phone | | + + + | Preferred Language | Unknown | + + + | Marital Status | | + + + | Tenriism Affiliation | Unknown | + + + | Race | Unknown | + + + | Ethnic Group | Unknown | + + + Author + + + | Author | [facility] | | | and [place] | + + + | Organization | [facility] | | | and [place] [...] Team Providers + +------+ + | Care Perioperative Manager Name | Role | Phone | [...] | 07/19/ | Telephone | PM SE [place] | [facility], | Appointment | | 2019 | | GASTROENTEROLOGY | ASHLEY Dixon [address] | | | | | [address] [place] | [place], [place] [address] | | | | | [address] [place], [place] | [place], [place] | | | | | [address] | [address] | | | | | [phone] | | | +--------+ + + + [...]
--- OUTSIDE RECORDS SUMMARY | ~2018-08-25 | XMS | Encounter Summary ---
Demographics + + + | Address | [address] | | | [place] [address] | + + + | Home Phone | | + + + | Preferred Language | Unknown | + + + | Marital Status | | + + + | Jain Affiliation | Unknown | + + + | Race | Unknown | + + + | Ethnic Group | Unknown | + + + Author + + + | Author | [facility] | | | and [place] | + + + | Organization | [facility] | | | and [place] [...] Team Providers + +------+ + | Care Healthcare Financial Analyst Name | Role | Phone | [...] | 06/15/ | Telephone | PM [address] [place] | [facility], | Appointment | | 2019 | | GASTROENTEROLOGY | ASHLEY Dixon [address] | | | | | [address] [place] | [place], [place] [address] | | | | | [address] [place], [place] | [place], [place] | | | | | [address] | [address] | | | | | [phone] | | | +--------+ + + + [...]
--- OUTSIDE RECORDS SUMMARY | ~2018-08-25 | XMS | Clinical Summary ---
Demographics + + + | Address | [address] | | | [place] [address] | + + + | Home Phone | | + + + | Preferred Language | Unknown | + + + | Marital Status | Single | + + + | Bahai Affiliation | Unknown | + + + | Race | Unknown | + + + | Ethnic Group | Unknown | + + + Author + + + | Author | [facility] | + + + | Organization | [facility] | + + + | Address | Unknown | + + + | Phone | Unavailable | + + + Support + + +---------+ + | Name | Relationship | Address | Phone | + + +---------+ + | Shar Orourke | ECON | Unknown | | + + +---------+ + Care Team Providers + +------+ + | Care Frickertron Checker Name | Role | Phone | + [...] | [employer] | ODS | [id number] | | | | | | HEALTH [...] | nader | | | [phone] | [phone] | + +--------+ +--------+ + +
--- OUTSIDE RECORDS SUMMARY | ~2018-08-25 | XMS | Encounter Summary ---
Demographics + + + | Address | [address] | | | [place] [address] | + + + | Home Phone | | + + + | Preferred Language | Unknown | + + + | Marital Status | | + + + | Islam Affiliation | Unknown | + + + | Race | Unknown | + + + | Ethnic Group | Unknown | + + + Author + + + | Author | [facility] | | | and [place] | + + + | Organization | [facility] | | | and [place] [...] Team Providers + +------+ + | Care System Safety Manager Name | Role | Phone | [...] + + | 06/14/ | Telephone | [facility] | [facility], | Other (paracentesis) | | 2019 | | GASTROENTEROLOGY | [address] [address] | | | | | [address] [place] | [place] [place] [address] | | | | | [address], [place] | [place], [place] | | | | | [phone] | [id number] | | | | | [phone] | | | +--------+ + + + [...]
[~2018-08-25 23:27] MED LIST changes: +ZOFRAN4 MG PO
--- OUTSIDE RECORDS SUMMARY | 2018-08-25 23:28 | XMS ---
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 Care History Medical/Surgical 06/29/2018 [facility] - PLEASE REVIEW PATIENT PDMP RESULTS ON AMA BEFORE PRESCRIBING PAIN MEDICATIONS - PLEASE BE CAREFUL WHEN PRESCRIBING PAIN MEDICATIONS- PHYSICIAN DISCRETION. 05/10/2018 [facility] \T\middot;\T\nbsp; PATIENT IS A [employer] MEMBER. \T\middot;\T\nbsp; PLEASE REFER PATIENT TO [facility] FOR NON EMERGENT MEDICAL NEEDS. \T\middot;\ T\nbsp; [facility] CAN SEE PATIENTS SAME DAY FOR APTS IF PATIENT CALLS FIRST THING IN THE MORNING. E.D. VISIT COUNT (12 MO.) 1 [facility] [address] [facility] TOTAL 4 NOTE: Visits indicate total known visits. 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 - Allergy status to analgesic agent status - Nicotine dependence, unspecified, uncomplicated - release manager (current) use of insulin 05/09/2018 12:32 [facility] [place] TYPE: Emergency COMPLAINT: - ALT LOC 11/01/2017 14:29 [facility] [place] TYPE: Emergency COMPLAINT: - LEFT SIDE UQP INPATIENT VISIT TRACKING (12 MO.) 05/10/2018 10:48 [facility] [place] TYPE: Medical Surgical COMPLAINT: - HYPOGLYCEMIA/HYPOTHERMIA DIAGNOSES: - 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 - Pneumonia due to other streptococci - penitentiary (current) use of insulin - Pneumonia, unspecified organism - Unspecified cirrhosis of liver - Type 2 diabetes mellitus with hypoglycemia without coma - Other longterm (current) drug therapy - Exposure to other [...] uncomplicated - Unspecified cirrhosis of liver - penitentiary (current) use of insulin - Essential (primary) hypertension - Other psychoactive substance abuse, in remission - Hypothermia, initial encounter - Pneumonia due to other streptococci - Cerebral infarction, unspecified - Allergy status to other drugs, medicaments and biological substances status - Unspecified viral hepatitis C without hepatic coma - Type 2 diabetes mellitus with hypoglycemia without coma - Hypothermia, initial encounter [id number]
--- NOTE | 2018-08-26 07:20 | EKG ---
[facility] [address] [place] [address] Signed Sinus rhythm with short AK Otherwise normal ECG When compared with ECG of 09-MAY-2018 12:58, AK interval has decreased Criteria for Septal infarct are no longer present Confirmed by LEILANI NÚÑEZ MD ([id number]) on 08/26/2018 7:20:05 AM Electronically Signed By: LEILANI NÚÑEZ MD 08/26/18 0720 PATIENT NAME: BRAEDEN CIFUENTES KYMBERLY Electrocardiogram DATE OF : 64 PHYSICIAN: LEILANI NÚÑEZ MD REPORT #: [id number] REPORT IS CONFIDENTIAL AND NOT TO BE RELEASED WITHOUT AUTHORIZATION
== END 2018-08-26 04:12 | disposition short-term general hospital (02) ==
LOC: ED 23:27
DX: I63.9 Cerebral infarction, unspecified (principal); E11.10 Type 2 diabetes mellitus with ketoacidosis without coma; N19 Unspecified kidney failure; R56.9 Unspecified convulsions; F17.200 Nicotine dependence, unspecified, uncomplicated; Z88.2 Allergy status to sulfonamides; Z79.4 Long term (current) use of insulin; Z79.899 Other long term (current) drug therapy
CPT/HCPCS: 36600; 51702; 70450; 71045; 80053; 81001; 82010; 82803; 83605; 84484; 85025; 85610; 85730; 93005; 93010; 96368; 99285-25; G0480; J0744; J1815; J2060; J2543; J3370; J7030; J7060

== ENCOUNTER 2018-09-26 11:38 | Inpatient (IN) | payer OTHER ==
[~2018-09-26] VITALS: Ht 154.9 cm; Wt 63.5 kg
--- OUTSIDE RECORDS SUMMARY | 2018-09-26 11:40 | XMS ---
PreManage Notification: BRAEDEN CIFUENTES [facility] Pharm[facility] Retail Support Specialist Events No recent Security Events currently on file CRITERIA MET - [facility] - Has Care Guidelines - PDMP CARE PROVIDERS MARSHALL THOMAS Registered Nurse: [facility] 05/10/2018-Current JULIUS PHONE: [phone] Ama has no Care Guidelines for this patient. Care History Medical/Surgical 06/29/2018 [facility] - PLEASE REVIEW PATIENT PDMP RESULTS ON AMA BEFORE PRESCRIBING PAIN MEDICATIONS - PLEASE BE CAREFUL WHEN PRESCRIBING PAIN MEDICATIONS- PHYSICIAN DISCRETION. 05/10/2018 [facility] \T\middot;\T\nbsp; PATIENT IS A [employer] MEMBER. \T\middot;\T\nbsp; PLEASE REFER PATIENT TO [facility] FOR NON EMERGENT MEDICAL NEEDS. \T\middot;\ T\nbsp; [facility] CAN SEE PATIENTS SAME DAY FOR APTS IF PATIENT CALLS FIRST THING IN THE MORNING. E.D. VISIT COUNT (12 MO.) 1 [facility] [address] [facility] TOTAL 5 NOTE: Visits indicate total known visits. ED/UCC VISIT TRACKING (12 MO.) 09/26/2018 11:38 [facility] [place] TYPE: Emergency COMPLAINT: - VOMITING 08/25/2018 23:27 [facility] [place] TYPE: Emergency COMPLAINT: - STROKE SYMPTOMS DIAGNOSES: - Other fpc (current) drug therapy - Nicotine dependence, unspecified, uncomplicated - Unspecified kidney failure - Allergy status to sulfonamides status - Unspecified convulsions - Cerebral infarction, unspecified - Type 2 diabetes mellitus with ketoacidosis without coma - manager long term care (current) use of insulin 06/28/2018 16:29 [facility] [place] TYPE: Emergency COMPLAINT: - ABD PAIN DIAGNOSES: - Unspecified abdominal pain - Type 2 diabetes mellitus without complications - Other termite control service representative (current) drug therapy - Allergy status to analgesic agent status - Nicotine dependence, unspecified, uncomplicated - nursing home (current) use of insulin 05/09/2018 12:32 [facility] [place] TYPE: Emergency COMPLAINT: - ALT LOC 11/01/2017 14:29 [facility] [place] TYPE: Emergency COMPLAINT: - LEFT SIDE UQP INPATIENT VISIT TRACKING (12 MO.) 08/26/2018 06:01 [place] [facility] [place] [facility] [place] TYPE: Neuro Surgery DIAGNOSES: - Alcohol abuse, uncomplicated - Cerebral infarction due to unspecified occlusion or stenosis of left middle cerebral artery - Type 1 diabetes mellitus with ketoacidosis without coma - Hyperglycemia, unspecified - Meningitis, unspecified - Encephalopathy, unspecified - Unspecified convulsions - Cerebral infarction, unspecified - Low back pain - Hypo-osmolality and hyponatremia - Alcoholic cirrhosis of liver with ascites - Sepsis, unspecified organism - Unspecified severe protein-calorie malnutrition - Acute kidney failure, unspecified - Severe sepsis without septic shock 05/10/2018 10:48 [facility] [place] TYPE: Medical Surgical COMPLAINT: - HYPOGLYCEMIA/HYPOTHERMIA DIAGNOSES: - Other fpc (current) drug therapy - Pneumonia due to other streptococci - nursing home (current) use of insulin - Pneumonia, unspecified organism - Unspecified cirrhosis of liver - Type 2 diabetes mellitus with hypoglycemia without coma - Other termite control service representative (current) drug therapy - Exposure to other [...] uncomplicated - Unspecified cirrhosis of liver - manager long term care (current) use of insulin - Essential (primary) hypertension - Other psychoactive substance abuse, in remission - Hypothermia, initial encounter - Pneumonia due to other streptococci - Cerebral infarction, unspecified - Allergy status to other drugs, medicaments and biological substances status - Unspecified viral hepatitis C without hepatic coma - Type 2 diabetes mellitus with hypoglycemia without coma - Hypothermia, initial encounter [email or web address]
[2018-09-26] MEDS ORDERED: CONSTULOSE10 GM/15 M PO (12:01)
--- NOTE | 2018-09-26 16:44 | NUR ---
Medications reconciled with patient interview
--- NOTE | 2018-09-26 16:57 | NUR ---
NEW ADMIT TO THE FLOOR. PT ON RA, RESP EVEN AND NON LABORED. PT ORDERED DINNER AT THIS TIME. BLOOD SUGAR STABLE AT THIS TIME. PERSONAL SUPPLIES AND CALL LIGHT WITHIN REACH. NO NEEDS AT THIS TIME.
--- NOTE | 2018-09-26 17:28 | EKG ---
[facility] [address] [facility] [place] [address] Signed Normal sinus rhythm Normal ECG When compared with ECG of 25-AUG-2018 23:42, Inverted T waves have replaced nonspecific T wave abnormality in Inferior leads Confirmed by LOREN ZAMARRIPA DO ([id number]) on 09/26/2018 5:28:48 PM Electronically Signed By: LOREN ZAMARRIPA DO 09/26/18 1728 PATIENT NAME: ESAUBRAEDEN KYMBERLY Electrocardiogram DATE OF : 64 PHYSICIAN: LOREN ZAMARRIPA DO REPORT #: [id number] REPORT IS CONFIDENTIAL AND NOT TO BE RELEASED WITHOUT AUTHORIZATION
--- NOTE | 2018-09-26 19:20 | NUR ---
BEDSIDE REPORT RECEIVED FROM ASIA BROWNING. PT RESTING IN BED WITH EYES CLOSED, RR 16, BREATHING NON-LABORED. IVF INFUSING WNL ORDERED.
--- NOTE | 2018-09-26 21:50 | NUR ---
PT ASSESSMENT COMPLETE. CBG 150, INSULIN ADMINISTERED ORDERED. PT RATES PAIN 6/10 IN LOWER BACK, SCHEDULED TYLENOL ADMINISTERED. PT SITTING UP IN BED EATING SALAD. BOWEL TONES ACTIVE X 4. PT DENIES NAUSEA. IV INFILTRATED IN RIGHT UPPER ARM, D/C'D WNL. NO REQUESTS AT THIS TIME. CALL LIGHT IN REACH. LIGHTS OFF IN ROOM.
--- NOTE | 2018-09-27 00:18 | NUR ---
CHECKED ON PT. APPEARS TO BE SLEEPING, LYING ON LEFT SIDE, BREATHING NON-LABORED. IVF INFUSING ORDERED. LIGHTS OFF IN ROOM.
--- NOTE | 2018-09-27 01:41 | NUR ---
CHECKED ON PT, APPEARS TO BE SLEEPING, EYES CLOSED, BREATHING NON-LABORED. IVF INFUSING ORDERED.
--- NOTE | 2018-09-27 03:34 | NUR ---
SBA WITH FWW FROM RESTROOM BACK TO BED. ASSESSMENT COMPLETE. PT C/O LOWER BACK PAIN AND HEARTBURN. PRN HEARTBURN MEDICATION AND HEAT PACK APPLIED FOR BACK PAIN. PT ASSISTED TO REPOSITION. IVF INFUSING WNL ORDERED. BOWEL TONES ACTIVE X 4. ABD SOFT. PT DENIES NAUSEA. CALL LIGHT IN REACH. LIGHTS OFF IN ROOM.
--- NOTE | 2018-09-27 05:22 | NUR ---
PT RESTED WELL THIS SHIFT. NO C/O NAUSEA. IVF INFUSING WNL ORDERED THROUGHOUT SHIFT. MULTIPLE BOWEL MOVEMENTS THIS SHIFT. C/O LOWER BACK PAIN, SCHEDULED TYLENOL ADMINISTERED FOR PAIN CONTROL. SBA WITH FWW TO RESTROOM. CBG 150 AT HS.
--- NOTE | 2018-09-27 06:01 | NUR ---
PT RESTING IN BED AWAKE. VSS. CRACKERS AND PUDDING PROVIDED REQUESTED. PT DENIES NAUSEA. NO REQUESTS AT THIS TIME. CALL LIGHT IN REACH. IVF INFUSING WNL.
--- NOTE | 2018-09-27 07:20 | NUR ---
BEDSIDE REPORT. PT UP TO BATHROOM AT THIS TIME. HAVING MULTIPLE LOOSE STOOLS OVER NIGHT
--- NOTE | 2018-09-27 09:10 | NUR ---
PT REPORTS PAIN WOULD LIKE TO HAVE ULTRAM ORDERED, WILL HOLD LACTULOSE UNTIL UPDATING MD ON CONTINUOUS LOOSE STOOLS.
--- NOTE | 2018-09-27 10:54 | NUR ---
PT IS CURRENTLY USING BATHROOM AND WILL CALL WHEN SHE IS FINISHED. PT WAS OFFERED A SHOWER BUT HAS DECLINED FOR NOW.
--- NOTE | 2018-09-27 12:14 | NUR ---
PT SITTING UP TO EAT LUNCH. PT REPORTS HER BACK PAIN IS FEELING BETTER
[2018-09-27] MEDS ORDERED: LANTUS100 UNITS/ SUB-Q (13:44)
[2018-09-27] MEDS ORDERED: CIPROFLOXACIN500 MG PO (13:45)
--- NOTE | 2018-09-27 14:00 | NUR ---
PT IS SITTING UP ON THE SIDE OF BED WITH CALL LIGHT IN REACH, PT DID NOT NEED ANYTHING AT THE MOMENT
--- NOTE | 2018-09-27 14:00 | NUR ---
PT UP WITH PHYSICAL THERAPY AT THIS TIME.
--- NOTE | 2018-09-27 14:26 | NUR ---
ROXANNA WITH PHARMACY IN TALKING WITH PT ABOUT MEDICATIONS, SIDE EFFECTS. PT ALERT AND ORIENTED.
--- NOTE | 2018-09-27 14:27 | NUR ---
NOTIFIED OF PT BRUISING AT LEFT BREAST AND CHEST WALL.
--- NOTE | 2018-09-27 15:10 | NUR ---
STOOL SAMPLE SENT TO LAB PER MD ORDERS
--- NOTE | 2018-09-27 15:30 | NUR ---
DISCHARGE PACKET WITH EDUCATIONS PROVIDED ON MEDICATIONS, IV REMOVED TIP INTACT WNL. DISCUSSED WITH PT SIGNS AND SYMPTOMS TO SEEK MEDICAL ATTENTION EMERGENTLY, FOLLOW UP APPOINTMENT MADE. DISCUSSED MEDS LAST DOSE AND NEXT DOSE. PT PROVIDED WITH SCRUBS TO DISCHARGE WITH HER CLOTHS ARE SOILED, ALSO TAXI TICKET PROVIDED FOR TRANSPORT HOME.
--- NOTE | 2018-09-27 16:02 | NUR ---
FINAL VITAL SIGNS TAKEN AND PT ASSITED TO THE FRONT VIA WHEELCHAIR
== END 2018-09-27 15:47 | disposition home or self-care (01) | DRG 637 ==
LOC: ED 11:38 → MS 14:04
PROVIDERS: ADMIT Student in an Organized Health Care Education/Training Program
PROC: 009U3ZX Drainage of Spinal Canal, Percutaneous Approach, Diagnostic (ICD-10-PCS; principal; 2018-09-26)
DX: E11.649 Type 2 diabetes mellitus with hypoglycemia without coma (principal); G93.41 Metabolic encephalopathy; A09 Infectious gastroenteritis and colitis, unspecified; I10 Essential (primary) hypertension; K72.90 Hepatic failure, unspecified without coma; B19.20 Unspecified viral hepatitis C without hepatic coma; M06.9 Rheumatoid arthritis, unspecified; G89.29 Other chronic pain; F17.200 Nicotine dependence, unspecified, uncomplicated; F10.11 Alcohol abuse, in remission; E87.6 Hypokalemia; E83.42 Hypomagnesemia; K70.30 Alcoholic cirrhosis of liver without ascites; Z88.8 Allergy status to other drugs, medicaments and biological substances; Z86.73 Personal history of transient ischemic attack (TIA), and cerebral infarction without residual deficits; Z86.61 Personal history of infections of the central nervous system; Z79.02 Long term (current) use of antithrombotics/antiplatelets; Z79.4 Long term (current) use of insulin; Z79.899 Other long term (current) drug therapy
CPT/HCPCS: 36415; 51701; 62270; 71045; 80048; 80053; 81001; 82140; 82945; 83036; 83690; 83735; 84157; 84484; 85025; 85610; 89051; 93005; 93010; 96368; 97165; 99285-25; J0696; J1650; J1815; J3475; J3480; J7030; J7120